=== PATIENT | female | born 1945 | race Caucasian/White ===

== ENCOUNTER 2017-09-10 10:27 | Emergency (ER) | payer MEDICARE, BC ==
[2017-09-10] MEDS ORDERED: Acetaminophen/HYDROcodone 325-5 MG Tab PO ONE (11:41)
--- NOTE | 2017-09-10 11:47 | EDM.PDOC ---
ED HPI GENERAL MEDICAL PROBLEM - General Chief Complaint: Flank Pain Stated Complaint: LOW BACK PAIN AND LOTS OF COUGHING Time Seen by Provider: 09/10/17 11:35 Source of Information: Reports: Patient, Old Records, RN History Limitations: Reports: No Limitations - History of Present Illness INITIAL COMMENTS - FREE TEXT/NARRATIVE: 71 yo female developed a cough last that has progressed. No fever. Cough is occasionally productive. Has not been to her doctor for her sx's. Has no hx of asthma and quit smoking in '. Since the onset of her cough she has also developed a bulge in her umbilical area when she coughs and L flank pain with movement or coughing that she thought was her kidney. Has no dysuria. No rash. Onset: Gradual Onset Date: 09/04/17 Duration: Day(s):, Getting Worse Location: Reports: Chest (cough), Abdomen (hernia), Back (L flank) Quality: Reports: Sharp (L flank with movement.), Stabbing Severity: Moderate Improves with: Reports: Rest Worsens with: Reports: Movement Context: Reports: Other (frequent cough for several days) Associated Symptoms: Reports: Chest Pain (L flank), Cough (occasionally productive). Denies: Fever/Chills, Shortness of Breath Treatments SENIOR TELLER: Reports: Other (see below) (none) LEFT FLANK AND RIGHT ABDOMEN Pain Score (Numeric/FACES): 10 - Related Data Allergies Allergy/AdvReac Type Severity Reaction Status Date / Time simvastatin Allergy Hives Verified 09/10/17 10:54 eggs Allergy Diarrhea Uncoded 09/10/17 10:54 metal Allergy Blisters Uncoded 09/10/17 10:54 Home Meds: Home Meds Acetaminophen/HYDROcodone [[place] 325-5 MG] 1 - 2 tab PO Q4H PRN #30 tab [Rx] Alendronate [Fosamax] 70 mg PO 09/10/17 [History] Allopurinol [Zyloprim] 100 mg PO DAILY 09/10/17 [History] Anastrozole [Arimidex] 1 mg PO Q6HR 09/10/17 [History] Azithromycin [Zithromax] 250 mg PO DAILY #4 tab 09/10/17 [Rx] Cyanocobalamin (Vitamin B12) [Vitamin B12] 1,000 mcg PO DAILY 09/10/17 [History] DULoxetine [Cymbalta] 60 mg PO BID 09/10/17 [History] DULoxetine [Cymbalta] 60 mg PO DAILY 09/10/17 [History] Doxepin [SINEquan] 25 mg PO BEDTIME 09/10/17 [History] Gabapentin [Neurontin] 300 mg PO DAILY 09/10/17 [History] Ketoconazole [Ketoconazole 2%] 1 applic TOP BID 09/10/17 [History] Metoprolol Succinate 25 mg PO DAILY 09/10/17 [History] Pramipexole [Mirapex] 0.5 mg PO BEDTIME 09/10/17 [History] Spironolactone 50 mg PO BID 09/10/17 [History] Torsemide 20 mg PO DAILY 09/10/17 [History] tiZANidine [Zanaflex] 4 mg PO Q8H 09/10/17 [History] traMADol [Ultram] 50 mg PO Q6H PRN 09/10/17 [History] Past Medical History HEENT History: Reports: Cataract Cardiovascular History: Reports: Heart Failure, High Cholesterol, Hypertension, Pulmonary Hypertension Respiratory History: Reports: Sleep Apnea, Other (See Below) Other Respiratory History: 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 c- pap. 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 bilateral hip pain needs replacement. DJD knee,s Neurological History: Reports: Neuropathy, Peripheral, Other (See Below) Other Neuro History: Restless leg Psychiatric History: Reports: Depression Endocrine/Metabolic History: Reports: Diabetes, Type II, Obesity/BMI 30+ Hematologic History: Reports: B12 Deficiency Oncologic (Cancer) History: Reports: Breast - Past Surgical History HEENT Surgical History: Reports: Cataract Surgery, Tonsillectomy GI Surgical History: Reports: Appendectomy Female Surgical History: Reports: Breast Biopsy Neurological Surgical History: Reports: Spinal Fusion Oncologic Surgical History: Reports: Biopsy of Breast, Lumpectomy Social & Family History - Tobacco Use Smoking Status *Q: Former Smoker Used Tobacco, but Quit: Yes Month/Year Tobacco Last Used: 2003 - Caffeine Use Caffeine Use: Reports: Coffee - Recreational Drug Use Recreational Drug Use: No ED ROS GENERAL - Review of Systems Review Of Systems: See Below Constitutional: Denies: Fever, Diaphoresis HEENT: Reports: No Symptoms Respiratory: Reports: Pleuritic Chest Pain, Cough, Sputum (occasionally). Denies: Shortness of Breath Cardiovascular: Reports: No Symptoms Endocrine: Reports: No Symptoms GI/Abdominal: Reports: No Symptoms : Reports: Flank Pain (L flank). Denies: Dysuria, Frequency Musculoskeletal: Reports: No Symptoms Skin: Reports: No Symptoms Neurological: Reports: No Symptoms Psychiatric: Reports: No Symptoms ED EXAM, GENERAL - Physical Exam Exam: See Below Exam Limited By: No Limitations General Appearance: Alert, WD/WN, Mild Distress Eye Exam: Bilateral Eye: Normal Inspection Ears: Normal External Exam, Normal Canal, Hearing Grossly Normal, Normal TMs Ear Exam: Bilateral Ear: Auricle Normal, Canal Normal, TM normal Nose: Normal Inspection, Normal Mucosa, No Blood Throat/Mouth: Normal Inspection, Normal Lips, Normal Oropharynx, Normal Voice, No Airway Compromise Head: Atraumatic, Normocephalic Neck: Normal Inspection, Supple, Non-Tender Respiratory/Chest: No Respiratory Distress, Lungs Clear, Normal Breath Sounds, No Accessory Muscle Use Cardiovascular: Regular Rate, Rhythm, No Edema GI/Abdominal: Normal Bowel Sounds, Soft, Non-Tender, No Distention Back Exam: Normal Inspection. No: CVA Tenderness (R), CVA Tenderness (L) Extremities: Normal Inspection, Normal Range of Motion, Non-Tender, No Pedal Edema Neurological: Alert, Oriented, CN II-XII Intact, Normal Cognition, No Motor/ Sensory Deficits Psychiatric: Normal Affect, Normal Mood Skin Exam: Warm, Dry, Intact, Normal Color, No Rash Lymphatic: No Adenopathy Course - Vital Signs Last Recorded V/S: Last Vital Signs Temp 37.1 C 09/10/17 11:19 Pulse 106 H 09/10/17 11:26 Resp 24 H 09/10/17 11:26 BP 138/85 09/10/17 11:26 Pulse Ox 88 L 09/10/17 11:26 - Orders/Labs/Meds Orders: Active Orders 24 hr Category Date Time Status CULTURE BLOOD [BC] Stat Lab 09/10/17 11:58 Received CULTURE URINE [RM] Stat Lab 09/10/17 13:01 Received URINALYSIS W/O MICROSCOPIC [UA W/O MICROSCOPIC] [URIN] Lab 09/10/17 12:50 Ordered Stat Labs: Laboratory Tests 09/10/17 09/10/17 09/10/17 Range/Units 11:52 11:55 11:55 WBC 8.1 (4.5-11.0) K/uL RBC 5.00 (3.30-5.50) M/uL Hgb 14.3 (12.0-15.0) g/dL Hct 43.7 (36.0-48.0) % MCV 87 (80-98) fL MCH 29 (27-31) pg MCHC 33 (32-36) % Plt Count 273 (150-400) K/uL Sodium 135 L (140-148) mmol/L Potassium 4.3 (3.6-5.2) mmol/L Chloride 99 L (100-108) mmol/L Carbon Dioxide 28 (21-32) mmol/L Anion Gap 12.3 (5.0-14.0) mmol/L BUN 19 H (7-18) mg/dL Creatinine 1.2 H (0.6-1.0) mg/dL Est Cr Clr Drug Dosing 34.99 mL/min Estimated GFR (MDRD) 45 L (>60) Glucose 108 H (74-106) mg/dL Lactic Acid 1.0 (0.4-2.0) mmol/L Calcium 8.9 (8.5-10.1) mg/dL C-Reactive Protein 12.28 H (0.0-0.3) mg/dL Urine Color Urine Appearance Urine pH (4.5-8.0) Ur Specific [place] (1.008-1.030) Urine Protein (NEGATIVE) mg/dL Urine Glucose (UA) (NEGATIVE) mg/dL Urine Ketones (NEGATIVE) mg/dL Urine Occult Blood (NEGATIVE) Urine Nitrite (NEGATIVE) Urine Bilirubin (NEGATIVE) Urine Urobilinogen (NORMAL) mg/dL Ur Leukocyte Esterase (NEGATIVE) 09/10/17 Range/Units 12:50 WBC (4.5-11.0) K/uL RBC (3.30-5.50) M/uL Hgb (12.0-15.0) g/dL Hct (36.0-48.0) % MCV (80-98) fL MCH (27-31) pg MCHC (32-36) % Plt Count (150-400) K/uL Sodium (140-148) mmol/L Potassium (3.6-5.2) mmol/L Chloride (100-108) mmol/L Carbon Dioxide (21-32) mmol/L Anion Gap (5.0-14.0) mmol/L BUN (7-18) mg/dL Creatinine (0.6-1.0) mg/dL Est Cr Clr Drug Dosing mL/min Estimated GFR (MDRD) (>60) Glucose (74-106) mg/dL Lactic Acid (0.4-2.0) mmol/L Calcium (8.5-10.1) mg/dL C-Reactive Protein (0.0-0.3) mg/dL Urine Color Yellow Urine Appearance Slightly cloudy Urine pH 5.0 (4.5-8.0) Ur Specific [place] 1.020 (1.008-1.030) Urine Protein Trace (NEGATIVE) mg/dL Urine Glucose (UA) Normal (NEGATIVE) mg/dL Urine Ketones Negative (NEGATIVE) mg/dL Urine Occult Blood Moderate (NEGATIVE) Urine Nitrite Negative (NEGATIVE) Urine Bilirubin Small (NEGATIVE) Urine Urobilinogen 1 (NORMAL) mg/dL Ur Leukocyte Esterase Moderate (NEGATIVE) Meds: Medications Discontinued Medications Generic Name Dose Route Start Last Admin Trade Name Aubrie PRN Reason Stop Dose Admin Hydrocodone Bitart/Acetaminophen 2 tab 09/10/17 11:41 09/10/17 11:53 [place] 325-5 Mg PO 09/10/17 11:42 2 tab ONETIME ONE Administration Azithromycin 500 mg 09/10/17 12:59 09/10/17 13:28 Zithromax PO 09/10/17 13:00 500 mg ONETIME ONE Administration Ceftriaxone Sodium 1 gm 09/10/17 12:59 Rocephin IM 09/10/17 13:00 ONETIME ONE Lidocaine HCl 5 ml 09/10/17 13:18 Xylocaine-Mpf 1% INJECT 09/10/17 13:19 ONETIME ONE - Radiology Interpretation Free Text/Narrative:: CXR-bilateral patchy infiltrates Departure - Departure Time of Disposition: 13:20 Disposition: Home, Self-Care 01 Condition: Fair Clinical Impression: Viral pneumonia - Discharge Information Prescriptions: Acetaminophen/HYDROcodone [[place] 325-5 MG] 1 - 2 tab PO Q4H PRN #30 tab PRN Reason: Pain Azithromycin [Zithromax] 250 mg PO DAILY #4 tab Referrals: PCP,None [Primary Care Provider] - Forms: ED Department Discharge Additional Instructions: Drink ample fluids. Take azithromycin daily as directed. Take [place] or acetaminophen as needed for pain relief. Recheck with your provider anirudh. Return here if worse. - My Orders Last 24 Hours: My Active Orders 09/10/17 11:58 CULTURE BLOOD [BC] Stat 09/10/17 12:50 URINALYSIS W/O MICROSCOPIC [UA W/O MICROSCOPIC] [URIN] Stat 09/10/17 13:01 CULTURE URINE [RM] Stat - Assessment/Plan Last 24 Hours: My Active Orders 09/10/17 11:58 CULTURE BLOOD [BC] Stat 09/10/17 12:50 URINALYSIS W/O MICROSCOPIC [UA W/O MICROSCOPIC] [URIN] Stat 09/10/17 13:01 CULTURE URINE [RM] Stat
--- NOTE | 2017-09-10 12:16 | CR ---
CHEST: 2 view CLINICAL HISTORY:Cough COMPARISON:None FINDINGS: Heart size and pulmonary vascularity are normal. There are atherosclerotic changes in the aorta. There is patchy interstitial prominence diffusely and bilaterally. Patient has had the multipl e kyphoplasty. There are multiple compression deformities in the thoracolumbar spine. IMPRESSION: Diffuse patchy interstitial prominence. This may be chronic, due to fibrosis. Superimpos ed acute interstitial process is not excluded .
[2017-09-10] MEDS ORDERED: cefTRIAXone 1 GM Vial IM ONE (12:59)
[2017-09-10] MEDS ORDERED: Azithromycin 250 MG Tab PO ONE (12:59)
[2017-09-10] MEDS ORDERED: Azithromycin 250 MG Tab ONE (13:30)
== END 2017-09-10 13:45 | disposition home or self-care (01) ==
LOC: JP.ED 10:27
DX: J12.9 Viral pneumonia, unspecified (principal); I50.9 Heart failure, unspecified; I11.0 Hypertensive heart disease with heart failure; E11.40 Type 2 diabetes mellitus with diabetic neuropathy, unspecified; E11.22 Type 2 diabetes mellitus with diabetic chronic kidney disease; I13.0 Hypertensive heart and chronic kidney disease with heart failure and stage 1 through stage 4 chronic kidney disease, or unspecified chronic kidney disease; N18.9 Chronic kidney disease, unspecified; Z88.8 Allergy status to other drugs, medicaments and biological substances; Z91.012 Allergy to eggs; Z91.048 Other nonmedicinal substance allergy status; Z79.899 Other long term (current) drug therapy; Z87.891 Personal history of nicotine dependence
CPT/HCPCS: 36415; 71046; 80048; 81003; 83605; 85027; 86140; 87040; 87086; 87088; 87186; 96372; 99284; A9270; J0696

== ENCOUNTER 2017-09-16 15:23 | Emergency (ER) | payer MEDICARE, BC ==
[2017-09-16] MEDS ORDERED: Albuterol/Ipratropium 3.0-0.5 MG/3 ML Neb Soln NEB ONE (16:26)
--- NOTE | 2017-09-16 16:37 | EDM.PDOC ---
ED HPI GENERAL MEDICAL PROBLEM - General Chief Complaint: Respiratory Problem Stated Complaint: PNEUMONIA NOT GETTING BETTER Time Seen by Provider: 09/16/17 16:15 Source of Information: Reports: Patient, Old Records, Police, RN Notes Reviewed History Limitations: Reports: No Limitations - History of Present Illness INITIAL COMMENTS - FREE TEXT/NARRATIVE: 71-year-old female presents to the emergency department today with increasing shortness of breath, she was evaluated in emergency department 6 days prior felt to have diagnosed with pneumonia was treated with combination Rocephin and a azithromycin, followed up in the clinic today has completed a course of antibiotics however was still feeling significantly short of breath. I did consult with her provider today Ms. Car is concerned she may need further workup. She has known history of sarcoidosis does follow with pulmonary states she has been stable, denies any overt fevers at home but does complain of night sweats producing greenish sputum mainly in the morning and shortness of breath at rest and with exertion Bilateral Leg Pain Score (Numeric/FACES): 5 - Related Data Allergies Allergy/AdvReac Type Severity Reaction Status Date / Time simvastatin Allergy Hives Verified 09/16/17 15:54 eggs Allergy Diarrhea Uncoded 09/10/17 10:54 metal Allergy Blisters Uncoded 09/10/17 10:54 Home Meds: Home Meds Acetaminophen/HYDROcodone [[place] 325-5 MG] 1 - 2 tab PO Q4H PRN #30 tab [Rx] Alendronate [Fosamax] 70 mg PO DAILY 09/10/17 [History] Allopurinol [Zyloprim] 100 mg PO DAILY 09/10/17 [History] Anastrozole [Arimidex] 1 mg PO Q6HR 09/10/17 [History] Cyanocobalamin (Vitamin B12) [Vitamin B12] 1,000 mcg PO DAILY 09/10/17 [History] DULoxetine [Cymbalta] 60 mg PO DAILY 09/10/17 [History] Doxepin [SINEquan] 25 mg PO BEDTIME 09/10/17 [History] Gabapentin [Neurontin] 300 mg PO DAILY 09/10/17 [History] Metoprolol Succinate 25 mg PO DAILY 09/10/17 [History] Pramipexole [Mirapex] 0.5 mg PO BEDTIME 09/10/17 [History] Spironolactone 50 mg PO BID 09/10/17 [History] Torsemide 60 mg PO DAILY 09/10/17 [History] tiZANidine [Zanaflex] 4 mg PO Q8H 09/10/17 [History] traMADol [Ultram] 50 mg PO Q6H PRN 09/10/17 [History] Benzonatate [Tessalon Perle] 100 mg PO TID PRN #30 capsule 09/16/17 [Rx] metFORMIN [Glucophage] 500 mg PO DAILY 09/16/17 [History] predniSONE [Prednisone] 40 mg PO DAILY 5 Days #10 tablet 09/16/17 [Rx] Past Medical History HEENT History: Reports: Cataract Cardiovascular History: Reports: Heart Failure, High Cholesterol, Hypertension, Pulmonary Hypertension Respiratory History: Reports: Sleep Apnea, Other (See Below) Other Respiratory History: 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 c- pap. 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 bilateral hip pain needs replacement. DJD knee,s Neurological History: Reports: Neuropathy, Peripheral, Other (See Below) Other Neuro History: Restless leg Psychiatric History: Reports: Depression Endocrine/Metabolic History: Reports: Diabetes, Type II, Obesity/BMI 30+ Hematologic History: Reports: B12 Deficiency Oncologic (Cancer) History: Reports: Breast - Past Surgical History HEENT Surgical History: Reports: Cataract Surgery, Tonsillectomy GI Surgical History: Reports: Appendectomy Female Surgical History: Reports: Breast Biopsy Neurological Surgical History: Reports: Spinal Fusion Oncologic Surgical History: Reports: Biopsy of Breast, Lumpectomy Social & Family History - Tobacco Use Smoking Status *Q: Never Smoker - Caffeine Use Caffeine Use: Reports: Coffee - Recreational Drug Use Recreational Drug Use: No ED ROS GENERAL - Review of Systems Review Of Systems: See Below Constitutional: Reports: Night Sweats. Denies: Fever, Chills HEENT: Reports: No Symptoms, Vision Change Respiratory: Reports: Shortness of Breath, Wheezing, Cough, Sputum Cardiovascular: Reports: Dyspnea on Exertion. Denies: Chest Pain GI/Abdominal: Reports: No Symptoms : Reports: No Symptoms Musculoskeletal: Reports: No Symptoms Skin: Reports: No Symptoms Neurological: Reports: No Symptoms ED EXAM, GENERAL - Physical Exam Exam: See Below Free Text/Narrative:: General: Female, not in any distress, coughing, alert and oriented x3 HEENT: head is atraumatic normocephalic, eyes pupils equal round reactive to light, sclera clear no conjunctivitis appreciated. Ears tympanic membranes clear and dang landmarks and light reflex are present bilaterally canals are clear. Nose no septal deviation, nares are clear, no blood present. Mouth mucosa is moist and pink no erythema or exudate noted in soft palate, tongue is midline uvula is midline, dentition is intact. Neck: Supple no thyromegaly no tracheal deviation. Nodes: Cervical nodes subclavicular nodes nontender no palpable lymphadenopathy noted. Lungs: Breath sounds are restricted reduced aeration I don't appreciate any wheezing CV: Regular rate and rhythm S1 and S2 appreciated no murmurs rubs or gallops noted. Abdomen: Soft, nontender, no palpable masses or organomegaly appreciated, no distention no guarding bowel sounds are present, . Neuro: Cranial nerves II through XII grossly intact Skin: Warm and dry, intact Extremities: No lower extremity edema appreciated, pedal pulse is +2. Course - Vital Signs Last Recorded V/S: Last Vital Signs Temp 98.2 F 09/16/17 15:53 Pulse 101 H 09/16/17 17:12 Resp 20 09/16/17 17:12 BP 112/40 L 09/16/17 17:12 Pulse Ox 90 L 09/16/17 17:12 - Orders/Labs/Meds Orders: Active Orders 24 hr Category Date Time Status EKG Documentation Completion [RC] ASDIRECTED Care 09/16/17 16:27 Active RT Aerosol Therapy [RC] ASDIRECTED Care 09/16/17 16:27 Active Chest wo Cont [CT] Stat Exams 09/16/17 16:28 Taken CULTURE RESPIRATORY + SMEAR [RM] Urgent Lab 09/16/17 16:29 Ordered EKG 12 Lead [EK] Routine Ther 09/16/17 16:26 Ordered Labs: Laboratory Tests 09/16/17 09/16/17 09/16/17 Range/Units 16:39 16:39 16:39 Troponin I < 0.017 (0.000-0.056) ng/mL C-Reactive Protein 2.00 H (0.0-0.3) mg/dL NT-Pro-B Natriuret Pep 54 (5-125) pg/mL TSH, Ultra Sensitive (0.358-3.740) uIU/mL 09/16/17 Range/Units 17:43 Troponin I (0.000-0.056) ng/mL C-Reactive Protein (0.0-0.3) mg/dL NT-Pro-B Natriuret Pep (5-125) pg/mL TSH, Ultra Sensitive 0.651 (0.358-3.740) uIU/mL Meds: Medications Discontinued Medications Generic Name Dose Route Start Last Admin Trade Name Freq PRN Reason Stop Dose Admin Albuterol/Ipratropium 3 ml 09/16/17 16:26 09/16/17 16:39 Duoneb 3.0-0.5 Mg/3 Ml NEB 09/16/17 16:27 3 ml ONETIME ONE Administration Departure - Departure Time of Disposition: 18:12 Disposition: Home, Self-Care 01 Condition: Fair Clinical Impression: Dyspnea Qualifiers: Dyspnea type: other forms of dyspnea Qualified Code(s): R06.09 - Other forms of dyspnea - Discharge Information Referrals: Dre Coburn MD [Primary Care Provider] - Forms: ED Department Discharge Additional Instructions: Take full course of steroids, use Tessalon Perles as needed help suppress cough , use albuterol inhaler as needed for shortness of breath symptoms, please 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 - My Orders Last 24 Hours: My Active Orders 09/16/17 16:26 EKG 12 Lead [EK] Routine 09/16/17 16:27 EKG Documentation Completion [RC] ASDIRECTED RT Aerosol Therapy [RC] ASDIRECTED 09/16/17 16:28 Chest wo Cont [CT] Stat 09/16/17 16:29 CULTURE RESPIRATORY + SMEAR [RM] Urgent - Assessment/Plan Last 24 Hours: My Active Orders 09/16/17 16:26 EKG 12 Lead [EK] Routine 09/16/17 16:27 EKG Documentation Completion [RC] ASDIRECTED RT Aerosol Therapy [RC] ASDIRECTED 09/16/17 16:28 Chest wo Cont [CT] Stat 09/16/17 16:29 CULTURE RESPIRATORY + SMEAR [RM] Urgent Plan: Assessment Acuity = acute Site and laterality = dyspnea Etiology = unclear etiology suspicious for underlying autoimmune versus emphysema Manifestations = none. Location of injury = Home Lab values = BNP 55, troponin negative, CRP at 2 CT scan of the chest reveals no acute process otherwise airway show mild to moderate central lobar pulmonary emphysema with mild subpleural interstitial fibrosis Plan I did review lab work CT scan results with her regarding her to trial of steroid prednisone 40 mg once a day for 5 days she's getting continue with albuterol inhaler which did provide some comfort for her and Tessalon Perles for cough 200 mg by mouth 3 times a day when necessary and she will follow-up with her lithopone charger next week This note was dictated using [employer] voice recognition software please call with any questions on syntax or grammar.
== END 2017-09-16 18:23 | disposition home or self-care (01) ==
LOC: JP.ED 15:23
DX: R06.09 Other forms of dyspnea (principal); I11.0 Hypertensive heart disease with heart failure; I50.9 Heart failure, unspecified; E78.00 Pure hypercholesterolemia, unspecified; E11.42 Type 2 diabetes mellitus with diabetic polyneuropathy; Z91.012 Allergy to eggs; Z88.8 Allergy status to other drugs, medicaments and biological substances; Z91.048 Other nonmedicinal substance allergy status; Z79.899 Other long term (current) drug therapy; Z79.84 Long term (current) use of oral hypoglycemic drugs
CPT/HCPCS: 36415; 71250; 83880; 84443; 84484; 86140; 93005; 94640; 99285; J7620

== ENCOUNTER 2017-09-19 17:49 | Emergency (ER) | payer MEDICARE, BC ==
[2017-09-19] MEDS ORDERED: Albuterol/Ipratropium 3.0-0.5 MG/3 ML Neb Soln NEB ONE (18:37)
[2017-09-19] MEDS ORDERED: Sodium Chloride 0.9% 10 ML Syringe FLUSH PRN (18:37)
--- NOTE | 2017-09-19 18:46 | EDM.PDOC ---
ED HPI GENERAL MEDICAL PROBLEM - General Chief Complaint: General Stated Complaint: SHORTNESS OF BREATH Time Seen by Provider: 09/19/17 18:30 Source of Information: Reports: Patient, Family History Limitations: Reports: No Limitations - History of Present Illness INITIAL COMMENTS - FREE TEXT/NARRATIVE: Idalia is a 71 year old female, hx of sarcoidosis, recent pneumonia and diabetes /HTN who presents to the ED today with ongoing dyspnea/sob. Patient was told by her meat team lead to come in tonight for possible PE and/or DVT as patient also has pain behind her left knee for the last day. Patient finished a course of Zithromax for her pneumonia 2 weeks ago, she was also started on prednisone with her left ED visit a week ago where CT scan was done and was negative for any acute findings. Patient does have a nebulizer machine at home which she really has not been using and she has been taking medication for her cough ( Tessalon Perles) which helped her symptoms. Patient denies any known recent fever, she reports that she sweats frequently and is difficult to tell she is running warm or not. Patient reports she is eating and drinking well. Patient reports that her meat team lead was concerned that she is early on prednisone for sarcoidosis which should help if this was the cause of her dyspnea. Patient denies any history of PE or DVT in the past, she is not currently on any blood thinners. Patient also has a history of chronic kidney disease and was told not to have any IV contrast. Onset: Gradual Duration: Week(s): (2) - Related Data Allergies Allergy/AdvReac Type Severity Reaction Status Date / Time simvastatin Allergy Hives Verified 09/19/17 18:10 eggs Allergy Diarrhea Uncoded 09/19/17 18:10 metal Allergy Blisters Uncoded 09/19/17 18:10 Home Meds: Home Meds Alendronate [Fosamax] 70 mg PO WEEKLY 09/10/17 [History] Allopurinol [Zyloprim] 100 mg PO DAILY 09/10/17 [History] Anastrozole [Arimidex] 1 mg PO Q6HR 09/10/17 [History] Cyanocobalamin (Vitamin B12) [Vitamin B12] 1,000 mcg PO DAILY 09/10/17 [History] DULoxetine [Cymbalta] 60 mg PO DAILY 09/10/17 [History] Doxepin [SINEquan] 25 mg PO BEDTIME 09/10/17 [History] Gabapentin [Neurontin] 300 mg PO DAILY 09/10/17 [History] Metoprolol Succinate 25 mg PO DAILY 09/10/17 [History] Pramipexole [Mirapex] 0.5 mg PO BEDTIME 09/10/17 [History] Spironolactone 50 mg PO BID 09/10/17 [History] Torsemide 60 mg PO DAILY 09/10/17 [History] tiZANidine [Zanaflex] 4 mg PO Q8H 09/10/17 [History] traMADol [Ultram] 50 mg PO Q6H PRN 09/10/17 [History] Benzonatate [Tessalon Perle] 100 mg PO TID PRN #30 capsule 09/16/17 [Rx] metFORMIN [Glucophage] 500 mg PO DAILY 09/16/17 [History] predniSONE [Prednisone] 40 mg PO DAILY 5 Days #10 tablet 09/16/17 [Rx] Past Medical History HEENT History: Reports: Cataract Cardiovascular History: Reports: Heart Failure, High Cholesterol, Hypertension, Pulmonary Hypertension Respiratory History: Reports: Sleep Apnea, Other (See Below) Other Respiratory History: 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 c- pap. oxygen at night Gastrointestinal History: Reports: GERD, Other (See Below) Other Gastrointestinal History: Isabel,s esophagus Genitourinary History: Reports: Chronic Renal Insuffiency SCIENCE SPECIALIST History: Reports: Musculoskeletal History: Reports: Fibromyalgia, Gout, Osteoarthritis, Other ( See Below) Other Musculoskeletal History: Lumbar compression fractures. bilateral hip pain needs replacement. DJD knee,s Neurological History: Reports: Neuropathy, Peripheral, Other (See Below) Other Neuro History: Restless leg Psychiatric History: Reports: Depression Endocrine/Metabolic History: Reports: Diabetes, Type II, Obesity/BMI 30+ Hematologic History: Reports: B12 Deficiency Oncologic (Cancer) History: Reports: Breast - Past Surgical History HEENT Surgical History: Reports: Cataract Surgery, Tonsillectomy GI Surgical History: Reports: Appendectomy Female Surgical History: Reports: Breast Biopsy, Breast Reconstruction Other Female Surgeries/Procedures: lumpectomy Neurological Surgical History: Reports: Spinal Fusion Oncologic Surgical History: Reports: Biopsy of Breast, Lumpectomy Social & Family History - Tobacco Use Smoking Status *Q: Former Smoker Years of Tobacco use: 30 Packs/Tins Daily: 1 Used Tobacco, but Quit: Yes Month/Year Tobacco Last Used: 08/2001 Second Hand Smoke Exposure: Yes - Caffeine Use Caffeine Use: Reports: Coffee, Soda, Tea - Recreational Drug Use Recreational Drug Use: No ED ROS GENERAL - Review of Systems Review Of Systems: ROS reveals no pertinent complaints other than HPI. ED EXAM, GENERAL - Physical Exam Exam: See Below Exam Limited By: No Limitations General Appearance: Alert, WD/WN, No Apparent Distress, Other (Diaphoretic) Eye Exam: Bilateral Eye: EOMI Throat/Mouth: Normal Oropharynx Head: Atraumatic Neck: Normal Inspection Respiratory/Chest: No Respiratory Distress, Lungs Clear, Normal Breath Sounds, No Accessory Muscle Use, Chest Non-Tender Cardiovascular: Normal Peripheral Pulses, Regular Rate, Rhythm, No Murmur Peripheral Pulses: 2+: Dorsalis Pedis (L), Dorsalis Pedis (R) GI/Abdominal: Normal Bowel Sounds, Soft, Non-Tender Extremities: Normal Inspection Neurological: Alert, Oriented, CN II-XII Intact Psychiatric: Normal Affect, Normal Mood Skin Exam: Warm, Intact, Diaphoretic Lymphatic: No Adenopathy Course - Vital Signs Last Recorded V/S: Last Vital Signs Temp 36.3 C 09/19/17 18:31 Pulse 85 09/19/17 18:31 Resp 15 09/19/17 18:31 BP 126/80 09/19/17 18:31 Pulse Ox 94 L 09/19/17 18:31 Idalia is a 71-year-old female, history of sarcoidosis, recent pneumonia, diabetes, chronic kidney disease who presents to the emergency department today as directed by her meat team lead for rule out PE/DVT. Please refer to history of present illness and focused exam. Patient on arrival here is hemolytically stable, she is afebrile, she is not hypoxic, she is not in any acute respiratory distress. Patient is diaphoretic, she denies any chest pain. Patient has no real lateral leg swelling, bilateral pedal pulses are intact, patient's has a negative Homans sign. D-dimer was obtained and is elevated at 1660. This may likely be due to a combination of factors, however, given patient's ongoing dyspnea with no improvement despite steroids and antibiotics, she would benefit from a CT PE, unfortunately her GFR today is 37 and we cannot do this here given her policy according to community development technician, GFR has to be at least 40. We do not have the capability to do a VQ scan. I discussed this with patient to does request to be transferred to [facility]. I discussed patient's case with the ER physician at [facility] who has accepted patient for transfer, I did mention that patient would also need an ultrasound of her left lower leg while she is there as well. Patient was given a liter of normal saline. Her white count today is reassuringly normal, CRP is mildly elevated. She is stable for discharge and agreeable to plan of care. Patient was discharged via BLS. Patient has a another daughter and [place] who can pick her up issues discharged from their facility which they were made aware. Nurse report was given to Paulina at [facility]. - Orders/Labs/Meds Orders: Active Orders 24 hr Category Date Time Status Peripheral IV Care [RC] . DIRECTED Care 09/19/17 18:37 Active RT Aerosol Therapy [RC] ASDIRECTED Care 09/19/17 18:37 Active Sodium Chloride 0.9% [Normal Saline] 1,000 ml Med 09/19/17 20:15 Active IV ASDIRECTED Sodium Chloride 0.9% [Saline Flush] Med 09/19/17 18:37 Active 10 ml FLUSH ASDIRECTED PRN Peripheral IV Insertion Adult [OM.PC] Routine Oth 09/19/17 18:37 Ordered Medication Orders Sodium Chloride (Normal Saline) 1,000 mls @ 999 mls/hr IV ASDIRECTED UMM Sodium Chloride (Saline Flush) 10 ml FLUSH ASDIRECTED PRN PRN Reason: Keep Vein Open Last Admin: 09/19/17 20:19 Dose: 10 ml Labs: Laboratory Tests 09/19/17 09/19/17 09/19/17 Range/Units 18:36 18:37 18:37 WBC 8.7 (4.5-11.0) K/uL RBC 5.09 (3.30-5.50) M/uL Hgb 14.7 (12.0-15.0) g/dL Hct 44.7 (36.0-48.0) % MCV 88 (80-98) fL MCH 29 (27-31) pg MCHC 33 (32-36) % Plt Count 284 (150-400) K/uL Neut % (Auto) 89 H (36-66) % Lymph % (Auto) 7 L (24-44) % Snyder % (Auto) 3 (2-6) % Eos % (Auto) 0 L (2-4) % Baso % (Auto) 0 (0-1) % D-Dimer, Quantitative 1660 H (0.0-400.0) ng/mL Sodium 132 L (140-148) mmol/L Potassium 5.1 (3.6-5.2) mmol/L Chloride 94 L (100-108) mmol/L Carbon Dioxide 31 (21-32) mmol/L Anion Gap 12.1 (5.0-14.0) mmol/L BUN 31 H D (7-18) mg/dL Creatinine 1.4 H (0.6-1.0) mg/dL Est Cr Clr Drug Dosing 29.99 mL/min Estimated GFR (MDRD) 37 L (>60) Glucose 265 H (74-106) mg/dL Calcium 9.4 (8.5-10.1) mg/dL Total Bilirubin 0.4 (0.2-1.0) mg/dL AST 14 L (15-37) U/L ALT 26 (12-78) U/L Alkaline Phosphatase 94 (46-116) U/L C-Reactive Protein (0.0-0.3) mg/dL NT-Pro-B Natriuret Pep 70 (5-125) pg/mL Total Protein 8.0 (6.4-8.2) g/dL Albumin 3.7 (3.4-5.0) g/dL Globulin 4.3 H (2.3-3.5) g/dL Albumin/Globulin Ratio 0.9 L (1.2-2.2) 09/19/17 Range/Units 18:40 WBC (4.5-11.0) K/uL RBC (3.30-5.50) M/uL Hgb (12.0-15.0) g/dL Hct (36.0-48.0) % MCV (80-98) fL MCH (27-31) pg MCHC (32-36) % Plt Count (150-400) K/uL Neut % (Auto) (36-66) % Lymph % (Auto) (24-44) % Snyder % (Auto) (2-6) % Eos % (Auto) (2-4) % Baso % (Auto) (0-1) % D-Dimer, Quantitative (0.0-400.0) ng/mL Sodium (140-148) mmol/L Potassium (3.6-5.2) mmol/L Chloride (100-108) mmol/L Carbon Dioxide (21-32) mmol/L Anion Gap (5.0-14.0) mmol/L BUN (7-18) mg/dL Creatinine (0.6-1.0) mg/dL Est Cr Clr Drug Dosing mL/min Estimated GFR (MDRD) (>60) Glucose (74-106) mg/dL Calcium (8.5-10.1) mg/dL Total Bilirubin (0.2-1.0) mg/dL AST (15-37) U/L ALT (12-78) U/L Alkaline Phosphatase (46-116) U/L C-Reactive Protein 0.62 H (0.0-0.3) mg/dL NT-Pro-B Natriuret Pep (5-125) pg/mL Total Protein (6.4-8.2) g/dL Albumin (3.4-5.0) g/dL Globulin (2.3-3.5) g/dL Albumin/Globulin Ratio (1.2-2.2) Meds: Medications Generic Name Dose Route Start Last Admin Trade Name Freq PRN Reason Stop Dose Admin Sodium Chloride 1,000 mls @ 999 mls/hr 09/19/17 20:15 Normal Saline IV ASDIRECTED UMM Sodium Chloride 10 ml 09/19/17 18:37 09/19/17 20:19 Saline Flush FLUSH 10 ml ASDIRECTED PRN Administration Keep Vein Open Discontinued Medications Generic Name Dose Route Start Last Admin Trade Name Freq PRN Reason Stop Dose Admin Albuterol/Ipratropium 3 ml 09/19/17 18:37 09/19/17 18:41 Duoneb 3.0-0.5 Mg/3 Ml NEB 09/19/17 18:38 3 ml ONETIME ONE Administration Departure - Departure Time of Disposition: 21:00 Disposition: DC/Tfer to Acute Hospital 02 Condition: Good Clinical Impression: Dyspnea Qualifiers: Dyspnea type: other forms of dyspnea Qualified Code(s): R06.09 - Other forms of dyspnea - Discharge Information Referrals: Dre Coburn MD [Primary Care Provider] - Forms: ED Department Discharge - My Orders Last 24 Hours: My Active Orders 09/19/17 18:37 Peripheral IV Care [RC] . DIRECTED RT Aerosol Therapy [RC] ASDIRECTED Sodium Chloride 0.9% [Saline Flush] 10 ml FLUSH ASDIRECTED PRN Peripheral IV Insertion Adult [OM.PC] Routine 09/19/17 20:15 Sodium Chloride 0.9% [Normal Saline] 1,000 ml IV ASDIRECTED - Assessment/Plan Last 24 Hours: My Active Orders 09/19/17 18:37 Peripheral IV Care [RC] . DIRECTED RT Aerosol Therapy [RC] ASDIRECTED Sodium Chloride 0.9% [Saline Flush] 10 ml FLUSH ASDIRECTED PRN Peripheral IV Insertion Adult [OM.PC] Routine 09/19/17 20:15 Sodium Chloride 0.9% [Normal Saline] 1,000 ml IV ASDIRECTED
[2017-09-19] MEDS ORDERED: Sodium Chloride 0.9% 1,000 ML IV SCH (20:15)
== END 2017-09-19 21:00 ==
LOC: JP.ED 17:49
DX: R06.09 Other forms of dyspnea (principal); I13.0 Hypertensive heart and chronic kidney disease with heart failure and stage 1 through stage 4 chronic kidney disease, or unspecified chronic kidney disease; I50.9 Heart failure, unspecified; N18.9 Chronic kidney disease, unspecified; E78.00 Pure hypercholesterolemia, unspecified; K21.9 Gastro-esophageal reflux disease without esophagitis; E11.42 Type 2 diabetes mellitus with diabetic polyneuropathy; Z91.012 Allergy to eggs; Z88.8 Allergy status to other drugs, medicaments and biological substances; Z91.048 Other nonmedicinal substance allergy status; Z79.899 Other long term (current) drug therapy; Z79.84 Long term (current) use of oral hypoglycemic drugs; Z87.891 Personal history of nicotine dependence
CPT/HCPCS: 36415; 80053; 83880; 85025; 85379; 86140; 96360; 99285; J7030; J7050; J7620

== ENCOUNTER 2018-04-04 07:55 | Day surgery (SDC) | payer MEDICARE, BC ==
[~2018-04-04 07:55] MED LIST: Albuterol/Ipratropium 3.0-0.5 MG/3 ML Neb Soln NEB ONE; Dextrose 5%-Lactated Ringers 1,000 ML IV SCH; Propofol 200 MG/20 ML SDV ONE; fentaNYL 100 MCG/2 ML SDV ONE
[2018-04-04] MEDS ORDERED: Albuterol/Ipratropium 3.0-0.5 MG/3 ML Neb Soln NEB ONE (08:15)
[2018-04-04] MEDS ORDERED: Dextrose 5%-Lactated Ringers 1,000 ML IV SCH (08:15)
--- NOTE | 2018-04-17 10:23 | OR ---
DATE OF PROCEDURE: 04/04/2018 PREOPERATIVE DIAGNOSIS: History of Isabel esophagus. POSTOPERATIVE DIAGNOSES: 1. History of Isabel esophagus with small hiatal hernia and moderate inflammation at esophagogastric junction. 2. Mild antral gastritis and duodenitis. OPERATIVE PROCEDURE: Esophagogastroduodenoscopy with: 1. Biopsies of antrum for CLOtest. 2. Biopsies of esophagogastric junction for histologic evaluation. ANESTHESIA: IV sedation. INDICATION FOR PROCEDURE: A 72-year-old female, who has history of Isabel esophagus and is to undergo a followup endoscopy, who is also planning on having a bariatric surgery in the upcoming near future and we would like to assess the degree of hiatal hernia and the amount of inflammation present. She has been intolerant of Protonix in the past and the [facility] advised the patient that she would be best treated by means of a gastric bypass both for treatment of her obesity-related comorbidities and the Isabel esophagus. Potential risks of the procedure today including bleeding and perforation were discussed, and the patient wishes to proceed. DETAILS OF PROCEDURE: The patient was taken to the operating room and placed in the left lateral decubitus position. IV sedation was administered, after which the upper GI endoscope was passed orally through the length of the esophagus, into the stomach with retroflexion view of the fundus, and thereafter through the pyloric channel and into the proximal duodenum. Findings included normal hypopharynx, larynx, upper esophageal sphincter, and esophageal body. At the EG junction, there was a small hiatal hernia. There was some upward extension of the gastrointestinal mucosal lining and moderate amount of inflammation with the distal esophageal mucosa being somewhat reddened and edematous. There is no stricturing, plaquing, or other signs of neoplastic change. Within the stomach, there was some mild patchy redness in the antrum, which continued in the duodenal bulb before the duodenum normalized, and at that point, biopsies were obtained from the antrum and sent for CLOtest for H. pylori. Multiple biopsies were then taken from the esophagogastric junction and sent for histologic evaluation. No bleeding from the biopsy sites was seen and the procedure concluded. The plan will be to start the patient on ranitidine 300 mg daily, and we will see the patient back next Friday for discussion of the gastric bypass. I think it would be nice to get some control of the esophagitis with ranitidine prior to the surgical undertaking. Jarrod Mcgrath MD /[id number]
== END 2018-04-04 11:45 | disposition home or self-care (01) ==
LOC: JP.SDS 07:55
PROVIDERS: ATTEND Surgery
DX: K22.70 Barrett's esophagus without dysplasia (principal); K21.0 Gastro-esophageal reflux disease with esophagitis; K44.9 Diaphragmatic hernia without obstruction or gangrene; I13.0 Hypertensive heart and chronic kidney disease with heart failure and stage 1 through stage 4 chronic kidney disease, or unspecified chronic kidney disease; I50.9 Heart failure, unspecified; E11.22 Type 2 diabetes mellitus with diabetic chronic kidney disease; N18.9 Chronic kidney disease, unspecified; E66.01 Morbid (severe) obesity due to excess calories; I27.20 Pulmonary hypertension, unspecified; G47.33 Obstructive sleep apnea (adult) (pediatric)
CPT/HCPCS: 43239; 87081; 88305; 93005; 93010; J2704; J3010; J7042; J7620-GY

== ENCOUNTER 2018-06-15 05:40 | Inpatient (IN) | payer MEDICARE, BC ==
[~2018-06-15 05:40] MED LIST changes: +Acetaminophen 500 MG Tab PO ONE; -Albuterol/Ipratropium 3.0-0.5 MG/3 ML Neb Soln NEB ONE; +Celecoxib 200 MG Cap PO ONE; -Dextrose 5%-Lactated Ringers 1,000 ML IV SCH; +Gabapentin 300 MG Cap PO ONE; -Propofol 200 MG/20 ML SDV ONE; +Scopolamine 1.5 MG Transdermal Patch TOP SCH; -fentaNYL 100 MCG/2 ML SDV ONE
[2018-06-15] MEDS ORDERED: Albuterol/Ipratropium 3.0-0.5 MG/3 ML Neb Soln NEB ONE (07:00)
[2018-06-15] MEDS ORDERED: Dextrose 5%-Lactated Ringers 1,000 ML IV SCH (07:00)
[2018-06-15] MEDS ORDERED: cefOXitin 2 GM in Sodium Chloride 0.9% 50 ML IV ONE (07:15)
[2018-06-15] MEDS ORDERED: fentaNYL 250 MCG/5 ML SDV ONE ×2 (07:21→08:35)
[2018-06-15] MEDS ORDERED: Ondansetron 4 MG/2 ML SDV ONE (07:22)
[2018-06-15] MEDS ORDERED: Neostigmine Methylsulfate 1 MG/ML 5 ML Syringe ONE (07:22)
[2018-06-15] MEDS ORDERED: Rocuronium 50 MG/5 ML Vial ONE (07:22)
[2018-06-15] MEDS ORDERED: Glycopyrrolate 0.2 MG/ML 5 ML MDV ONE (07:22)
[2018-06-15] MEDS ORDERED: Propofol 200 MG/20 ML SDV ONE (07:22)
[2018-06-15] MEDS ORDERED: Succinylcholine 200 MG/10 ML MDV ONE (07:22)
[2018-06-15] MEDS ORDERED: Sodium Chloride 0.9% 1,000 ML ONE (07:25)
[2018-06-15] MEDS ORDERED: Formoterol/Mometasone 100-5 MCG 8.8 GM Inhaler IH ONE (07:30)
[2018-06-15] MEDS ORDERED: Ketamine 500 MG/5 ML MDV IV SCH (07:45)
[2018-06-15] MEDS ORDERED: Ropivacaine 60 ML, Dexamethasone 8 MG, EPINEPHrine 0.4 MG, Sodium Chloride 0.9% 17.6 ML NERVRT SCH ×4 (07:45)
[2018-06-15] MEDS: cefOXitin 2 GM Vial ONE ×2 (08:43→09:28)
[2018-06-15] MEDS ORDERED: Naloxone 0.4 MG/ML SDV ONE (10:01)
[2018-06-15] MEDS ORDERED: ePHEDrine 50 MG/ML SDV ONE (10:17)
[2018-06-15] MEDS ORDERED: Sodium Chloride 0.9% 0 ML ONE (10:17)
[2018-06-15] MEDS ORDERED: hydrOXYzine HCl 100 MG/2 ML SDV IM ONE (10:28)
[2018-06-15] MEDS ORDERED: Insulin Lispro 100 Unit/ML 3 ML KwikPen SUBCUT ONE (10:43)
[2018-06-15] MEDS ORDERED: Labetalol 20 MG/4 ML Syringe IVPUSH PRN (12:12)
[2018-06-15] MEDS ORDERED: Ondansetron 4 MG/2 ML SDV IVPUSH PRN (12:12)
[2018-06-15] MEDS ORDERED: Metoclopramide 10 MG/2 ML SDV IVPUSH PRN (12:12)
[2018-06-15] MEDS ORDERED: Albuterol/Ipratropium 3.0-0.5 MG/3 ML Neb Soln INH PRN (12:12)
[2018-06-15] MEDS ORDERED: Insulin Lispro 100 Unit/ML 3 ML KwikPen SUBCUT PRN (12:12)
[2018-06-15] MEDS ORDERED: diphenhydrAMINE 50 MG/ML SDV IVPUSH PRN (12:12)
[2018-06-15] MEDS ORDERED: hydrOXYzine HCl 100 MG/2 ML SDV IM PRN (12:12)
[2018-06-15] MEDS ORDERED: HYDROmorphone 0.5 MG/0.5 ML Syringe IVPUSH PRN (12:12)
[2018-06-15] MEDS: Lactated Ringers 1,000 ML IV SCH ×2 (12:20→21:23)
[2018-06-15] MEDS: Dextrose 5%-Lactated Ringers 1,000 ML IV SCH (12:20)
[2018-06-15] MEDS: cefOXitin 2 GM in Sodium Chloride 0.9% 50 ML IV SCH ×2 (13:03→17:36)
[2018-06-15] MEDS ORDERED: Pantoprazole 40 MG Vial IVPUSH SCH (14:00)
[2018-06-15] MEDS: Gabapentin 250 MG/5 ML Solution ML 470 ML Bottle PO SCH ×2 (14:08→21:14)
[2018-06-15] MEDS: Albuterol/Ipratropium 3.0-0.5 MG/3 ML Neb Soln INH SCH ×2 (14:31→21:16)
[2018-06-15] MEDS: Acetaminophen Soln 650 MG/20.3 ML UD Cup PO SCH ×2 (15:34→21:14)
[2018-06-15] MEDS: Diltiazem IR 30 MG Tab PO SCH ×2 (15:34→21:16)
[2018-06-15] MEDS ORDERED: MVI, Adult with Vitamin K 10 ML, Thiamine 200 MG, Chromium/Copper/Mang/Selen/Zn 1 ML in... IV SCH ×4 (16:00)
[2018-06-15] MEDS ORDERED: metFORMIN 500 MG Tab PO SCH (17:00)
[2018-06-15] MEDS: Heparin Sodium 5,000 Units/ML Vial SUBCUT SCH (17:37)
[2018-06-15] MEDS: Metoprolol Tartrate 25 MG Tab PO SCH (21:15)
[2018-06-15] MEDS: Spironolactone 25 MG Tab PO SCH (21:15)
[2018-06-15] MEDS: Bumetanide 1 MG Tab PO SCH (21:15)
[2018-06-15] MEDS: Formoterol/Mometasone 100-5 MCG 8.8 GM Inhaler IH SCH (21:15)
[2018-06-16] MEDS: cefOXitin 2 GM in Sodium Chloride 0.9% 50 ML IV SCH (00:14)
[2018-06-16] MEDS ORDERED: Iohexol 647 MG/ML 50 ML SDV PO STA (01:23)
--- NOTE | 2018-06-16 02:21 | CRLCR ---
Indication: Dale-en-Y Technique: KUB 2 view obtained after administration of oral contrast Comparison: None Findings/Impression: : Postoperative changes of gastric bypass procedure. Oral contrast seen filling the gastric pouch and small bowel. No definite areas of extravasation identified. MIRANDA drain projects in the left upper quadrant. Nonspecific bowel gas pattern. Vertebroplasty material noted in several thoracic vertebral bodies. Dictated by Betsy Conner MD @ Jun 16 2018 2:17AM Signed by Dr. Betsy Conner @ Jun 16 2018 2:19AM
[2018-06-16] MEDS: Acetaminophen Soln 650 MG/20.3 ML UD Cup PO SCH ×4 (03:19→22:27)
[2018-06-16] MEDS: Dextrose 5%-Lactated Ringers 1,000 ML IV SCH (05:31)
[2018-06-16] MEDS: Diltiazem IR 30 MG Tab PO SCH ×4 (06:17→22:27)
[2018-06-16] MEDS: Heparin Sodium 5,000 Units/ML Vial SUBCUT SCH ×2 (06:17→17:10)
[2018-06-16] MEDS: Albuterol/Ipratropium 3.0-0.5 MG/3 ML Neb Soln INH SCH ×4 (07:10→20:36)
[2018-06-16] MEDS: Formoterol/Mometasone 100-5 MCG 8.8 GM Inhaler IH SCH ×2 (07:10→20:32)
[2018-06-16] MEDS ORDERED: Dextrose 5%-Lactated Ringers 1,000 ML IV SCH (07:15)
[2018-06-16] MEDS ORDERED: Ondansetron 4 MG Tab.DIS PO PRN (07:15)
[2018-06-16] MEDS ORDERED: Orphenadrine 100 MG Tab.ER PO PRN (07:16)
[2018-06-16] MEDS: Celecoxib 200 MG Cap PO SCH (08:13)
[2018-06-16] MEDS: Spironolactone 25 MG Tab PO SCH ×2 (08:14→20:31)
[2018-06-16] MEDS: Metoprolol Tartrate 25 MG Tab PO SCH ×2 (08:14→20:28)
[2018-06-16] MEDS: metFORMIN 500 MG Tab PO SCH (08:16)
[2018-06-16] MEDS: SCOPOLAMINE PATCH CHECK TOP SCH (08:21)
[2018-06-16] MEDS: Magnesium Sulfate/Water 2 GM in Premix Bag 1 BAG IV SCH ×3 (08:22→20:31)
[2018-06-16] MEDS: DULoxetine 30 MG Cap PO SCH (08:49)
[2018-06-16] MEDS: Allopurinol 100 MG Tab PO SCH (08:49)
[2018-06-16] MEDS: Anastrozole 1 MG Tab PO SCH (08:49)
[2018-06-16] MEDS: Gabapentin 250 MG/5 ML Solution ML 470 ML Bottle PO SCH ×3 (08:54→20:43)
--- NOTE | 2018-06-16 08:59 | PCM.PN ---
- General Info Date of Service: 06/16/18 Admission Dx/Problem (Free Text): Dale-en-Y Subjective Update: POD #1. Pt is doing very well. Has been up and walking. Tolerating liquid diet. Good urine output. Minimal pain. Functional Status: Reports: Pain Controlled, Tolerating Diet - Review of Systems General: Reports: No Symptoms HEENT: Reports: No Symptoms Pulmonary: Reports: No Symptoms Cardiovascular: Reports: No Symptoms Gastrointestinal: Reports: No Symptoms Genitourinary: Reports: No Symptoms Musculoskeletal: Reports: No Symptoms Skin: Reports: No Symptoms Neurological: Reports: No Symptoms Psychiatric: Reports: No Symptoms - Patient Data Vitals - Most Recent: Last Vital Signs Temp 35.7 C 06/16/18 07:00 Pulse 94 06/16/18 08:14 Resp 16 06/16/18 07:00 BP 127/60 06/16/18 08:14 Pulse Ox 98 06/16/18 07:45 Weight - Most Recent: 124.647 kg I&O - Last 24 Hours: Intake & Output 06/15/18 06/16/18 06/16/18 22:59 06:59 14:59 Intake Total 1011 2700 Output Total 640 2000 Balance 371 700 Lab Results Last 24 Hours: Laboratory Results - last 24 hr 06/16/18 06/16/18 06/16/18 Range/Units 04:45 04:45 04:45 WBC 7.7 (4.5-11.0) K/uL RBC 4.42 (3.30-5.50) M/uL Hgb 12.4 (12.0-15.0) g/dL Hct 39.8 (36.0-48.0) % MCV 90 (80-98) fL MCH 28 (27-31) pg MCHC 31 L (32-36) % Plt Count 247 (150-400) K/uL Neut % (Auto) 93 H (36-66) % Lymph % (Auto) 3 L (24-44) % [place] % (Auto) 4 (2-6) % Eos % (Auto) 0 L (2-4) % Baso % (Auto) 0 (0-1) % Sodium 138 L (140-148) mmol/L Potassium 4.8 (3.6-5.2) mmol/L Chloride 100 (100-108) mmol/L Carbon Dioxide 32 (21-32) mmol/L Anion Gap 10.8 (5.0-14.0) mmol/L BUN 25 H (7-18) mg/dL Creatinine 1.5 H (0.6-1.0) mg/dL Est Cr Clr Drug Dosing 27.60 mL/min Estimated GFR (MDRD) 34 L (>60) Glucose 173 H (74-106) mg/dL Calcium 9.5 (8.5-10.1) mg/dL Phosphorus 4.3 (2.5-4.9) mg/dL Magnesium 1.7 L (1.8-2.4) mg/dL Total Bilirubin 0.3 (0.2-1.0) mg/dL AST 39 H D (15-37) U/L ALT 50 D (12-78) U/L Alkaline Phosphatase 73 (46-116) U/L NT-Pro-B Natriuret Pep 465 H (5-125) pg/mL Total Protein 6.4 (6.4-8.2) g/dL Albumin 2.9 L (3.4-5.0) g/dL Globulin 3.5 (2.3-3.5) g/dL Albumin/Globulin Ratio 0.8 L (1.2-2.2) Med Orders - Current: Current Medications Acetaminophen (Tylenol) 650 mg PO Q6H ON LICENSE OF [facility] Last Admin: 06/16/18 03:19 Dose: 650 mg Albuterol/Ipratropium (Duoneb 3.0-0.5 Mg/3 Ml) 3 ml INH QIDRT ON LICENSE OF [facility] Last Admin: 06/16/18 07:10 Dose: 3 ml Albuterol/Ipratropium (Duoneb 3.0-0.5 Mg/3 Ml) 3 ml INH ASDIRECTED PRN PRN Reason: BREATHING Allopurinol (Zyloprim) 200 mg PO DAILY ON LICENSE OF [facility] Anastrozole (Arimidex) 1 mg PO DAILY ON LICENSE OF [facility] Bumetanide (Bumex) 2 mg PO BID ON LICENSE OF [facility] Last Admin: 06/15/18 21:15 Dose: 2 mg Celecoxib (Celebrex) 200 mg PO DAILY@0800 ON LICENSE OF [facility] Stop: 06/17/18 08:01 Last Admin: 06/16/18 08:13 Dose: 200 mg Ropivacaine 60 ml/Dexamethasone 8 mg/Epinephrine HCl 0.4 mg/ Sodium Chloride 17.6 ml 0 ml NERVRT ASDIRECTED ON LICENSE OF [facility] Cyanocobalamin (Vitamin B12) 1,000 mcg IM ONETIME ONE Stop: 06/17/18 09:01 Diltiazem HCl (Cardizem) 30 mg PO QID ON LICENSE OF [facility] Last Admin: 06/16/18 06:17 Dose: 30 mg Diphenhydramine HCl (Benadryl) 50 mg IVPUSH Q4H PRN PRN Reason: ITCHING Doxepin HCl (Sinequan) 25 mg PO BEDTIME ON LICENSE OF [facility] Duloxetine HCl (Cymbalta) 60 mg PO DAILY ON LICENSE OF [facility] Gabapentin (Neurontin) 300 mg PO TID ON LICENSE OF [facility] Last Admin: 06/15/18 21:14 Dose: 300 mg Heparin Sodium (Porcine) (Heparin Sodium) 5,000 units SUBCUT Q12H ON LICENSE OF [facility] Last Admin: 06/16/18 06:17 Dose: 5,000 units Hydromorphone HCl (Dilaudid) 0.5 mg IVPUSH Q2H PRN PRN Reason: MODERATE PAIN Hydroxyzine HCl (Vistaril) 50 - 75 mg IM Q4H PRN PRN Reason: pain Last Admin: 06/16/18 02:12 Dose: 50 mg Dextrose/Lactated Ringer's (Dextrose 5%-Lactated Ringers) 1,000 mls @ 80 mls/ hr IV ASDIRECTED ON LICENSE OF [facility] Magnesium Sulfate 2 gm/ Premix 50 mls @ 25 mls/hr IV Q6H ON LICENSE OF [facility] Stop: 06/19/18 04:59 Last Admin: 06/16/18 08:22 Dose: 25 mls/hr Multivitamins/Minerals 10 ml/Thiamine HCl 200 mg/ Chromium/Copper/Manganese/ Seleni/Zn 1 ml/ Dextrose/Lactated Ringer's 1,013 mls @ 80 mls/hr IV DAILY@1600 ON LICENSE OF [facility] Insulin Human Lispro (Humalog) 0 unit SUBCUT Q6H PRN; Protocol PRN Reason: CORRECTIONAL DOSING Last Admin: 06/15/18 16:35 Dose: 5 units Labetalol HCl (Normodyne) 5 mg IVPUSH Q5M PRN PRN Reason: SBP over 160 OR DBP over 95 Metformin HCl (Glucophage) 500 mg PO DAILY ON LICENSE OF [facility] Last Admin: 06/16/18 08:16 Dose: 500 mg Metoclopramide HCl (Reglan) 10 mg IVPUSH Q6H PRN PRN Reason: NAUSEA NOT CONTROL BY ZOFRAN Metolazone (Zaroxolyn) 2.5 mg PO DAILY PRN PRN Reason: EXCESS FLUID Metoprolol Tartrate (Lopressor) 12.5 mg PO BID ON LICENSE OF [facility] Last Admin: 06/16/18 08:14 Dose: 12.5 mg Miscellaneous Information (Remove Patch) 1 ea TRDERM ONETIME ONE Stop: 06/17/18 10:01 Mometasone Furoate/Formoterol Fumar (Dulera 100-5 Mcg) 2 puff IH BIDRT ON LICENSE OF [facility] Last Admin: 06/16/18 07:10 Dose: 2 puff Scopolamine Patch (Check) 1 each TOP DAILY ON LICENSE OF [facility] Stop: 06/17/18 12:13 Last Admin: 06/16/18 08:21 Dose: Not Given Non-Formulary Medication (Denosumab [Xgeva]) 60 mg SQ .Q6MO ON LICENSE OF [facility] Ondansetron HCl (Zofran) 4 mg IVPUSH Q4H PRN PRN Reason: Nausea/Vomiting Ondansetron HCl (Zofran Odt) 4 mg PO Q4H PRN PRN Reason: Nausea/Vomiting Orphenadrine Citrate (Norflex) 100 mg PO BID PRN PRN Reason: Muscle Spasm Pantoprazole Sodium (Protonix Iv) 40 mg IVPUSH Q24H ON LICENSE OF [facility] Last Admin: 06/15/18 14:08 Dose: 40 mg Pramipexole Dihydrochloride (Mirapex) 0.5 mg PO BEDTIME ON LICENSE OF [facility] Scopolamine (Transderm-Scop) 1.5 mg TOP Q72H ON LICENSE OF [facility] Stop: 06/17/18 10:00 Last Admin: 06/15/18 06:07 Dose: 1.5 mg Spironolactone (Aldactone) 50 mg PO BID ON LICENSE OF [facility] Last Admin: 06/16/18 08:14 Dose: 50 mg Discontinued Medications Acetaminophen (Tylenol Extra Strength) 1,000 mg PO ONETIME ONE Stop: 06/15/18 05:31 Last Admin: 06/15/18 06:06 Dose: 1,000 mg Albuterol/Ipratropium (Duoneb 3.0-0.5 Mg/3 Ml) 3 ml NEB ONETIME ONE Stop: 06/15/18 07:01 Last Admin: 06/15/18 06:07 Dose: 3 ml Cefoxitin Sodium (Mefoxin) Confirm Administered Dose 2 gm .ROUTE .STK-MED ONE Stop: 06/15/18 07:04 Last Admin: 06/15/18 09:28 Dose: 2 gm Celecoxib (Celebrex) 200 mg PO ONETIME ONE Stop: 06/15/18 05:31 Last Admin: 06/15/18 06:06 Dose: 200 mg Ephedrine Sulfate (Ephedrine Sulfate) Confirm Administered Dose 50 mg .ROUTE .STK-MED ONE Stop: 06/15/18 10:18 Fentanyl (Sublimaze) Confirm Administered Dose 250 mcg .ROUTE .STK-MED ONE Stop: 06/15/18 07:22 Fentanyl (Sublimaze) Confirm Administered Dose 250 mcg .ROUTE .STK-MED ONE Stop: 06/15/18 08:36 Gabapentin (Neurontin) 300 mg PO ONETIME ONE Stop: 06/15/18 05:31 Last Admin: 06/15/18 06:06 Dose: 300 mg Glycopyrrolate (Robinul) Confirm Administered Dose 1 mg .ROUTE .ST-MED ONE Stop: 06/15/18 07:23 Hydroxyzine HCl (Vistaril) 100 mg IM ONETIME ONE Stop: 06/15/18 10:29 Last Admin: 06/15/18 10:33 Dose: 100 mg Cefoxitin Sodium 2 gm/ Sodium (Chloride) 50 mls @ 100 mls/hr IV ONETIME ONE Stop: 06/15/18 07:44 Last Admin: 06/15/18 07:37 Dose: 100 mls/hr Dextrose/Lactated Ringer's (Dextrose 5%-Lactated Ringers) 1,000 mls @ 100 mls/ hr IV ASDIRECTED [facility] Last Admin: 06/15/18 07:38 Dose: 100 mls/hr Insulin Human Regular 100 unit (/ Sodium Chloride) 100 mls @ 0 mls/hr IV TITRATE U[facility]; Protocol Sodium Chloride (Normal Saline) Confirm Administered Dose 1,000 mls @ as directed .ROUTE .STK-MED ONE Stop: 06/15/18 07:26 Sodium Chloride (Normal Saline) Confirm Administered Dose 10 mls @ as directed .ROUTE .ST-MED ONE Stop: 06/15/18 10:18 Dextrose/Lactated Ringer's (Dextrose 5%-Lactated Ringers) 1,000 mls @ 75 mls/ hr IV ASDIRECTED ON LICENSE OF [facility] Last Admin: 06/16/18 05:31 Dose: 75 mls/hr Lactated Ringer's (Ringers, Lactated) 1,000 mls @ 100 mls/hr IV ASDIRECTED ON LICENSE OF [facility] Last Admin: 06/15/18 21:23 Dose: 100 mls/hr Multivitamins/Minerals 10 ml/Thiamine HCl 200 mg/ Chromium/Copper/Manganese/ Seleni/Zn 1 ml/ Dextrose/Lactated Ringer's 1,013 mls @ 75 mls/hr IV DAILY@1600 ON LICENSE OF [facility] Last Admin: 06/15/18 15:33 Dose: 75 mls/hr Cefoxitin Sodium 2 gm/ Sodium (Chloride) 50 mls @ 100 mls/hr IV Q6H ON LICENSE OF [facility] Stop: 06/16/18 00:59 Last Admin: 06/16/18 00:14 Dose: 100 mls/hr Insulin Human Lispro (Humalog) 5 unit SUBCUT ONETIME ONE Stop: 06/15/18 10:44 Last Admin: 06/15/18 10:50 Dose: 5 units Iohexol (Omnipaque-300) [facility] Stop: 06/16/18 01:24 Last Admin: 06/16/18 01:34 Dose: 50 ml Ketamine HCl (Ketalar) [facility] Metformin HCl (Glucophage) 500 mg PO BIDMEALS ON LICENSE OF [facility] Mometasone Furoate/Formoterol Fumar (Dulera 100-5 Mcg) 2 puff IH ONETIME ONE Stop: 06/15/18 07:31 Last Admin: 06/15/18 07:36 Dose: 1 dose Naloxone HCl (Narcan) Confirm Administered Dose 0.4 mg .ROUTE .STK-MED ONE Stop: 06/15/18 10:02 Last Admin: 06/15/18 15:02 Dose: Not Given Neostigmine Methylsulfate (Neostigmine) Confirm Administered Dose 5 mg .ROUTE .STK-MED ONE Stop: 06/15/18 07:23 Ondansetron HCl (Zofran) Confirm Administered Dose 4 mg .ROUTE .STK-MED ONE Stop: 06/15/18 07:23 Pharmacy Consult (Consult To Pharmacy) 1 each . [facility] Consult (Consult To Pharmacy) 1 each .XX ASDIRECTED ON LICENSE OF [facility] Stop: 06/15/18 14:00 Propofol (Diprivan 20 Ml) Confirm Administered Dose 200 mg .ROUTE .STK-MED ONE Stop: 06/15/18 07:23 Rocuronium [place] (Zemuron) Confirm Administered Dose 50 mg .ROUTE .STK-MED ONE Stop: 06/15/18 07:23 Succinylcholine Chloride (Quelicin) Confirm Administered Dose 200 mg .ROUTE .STK -MED ONE Stop: 06/15/18 07:23 - Exam Quality Assessment: Supplemental Oxygen, DVT Prophylaxis General: Alert, Oriented HEENT: Pupils Equal, Pupils Reactive, EOMI, Mucous Membr. Moist/[place] Neck: Supple Lungs: Clear to Auscultation, Normal Respiratory Effort Cardiovascular: Regular Rate, Regular Rhythm GI/Abdominal Exam: Soft, No Distention, Tender Skin: Warm, Dry, Intact Wound/Incisions: Healing Well, Dressing Dry and Intact - Problem List & Annotations (1) Status post gastric bypass for obesity SNOMED Code(s): 270334991, 431771493, 662153789, 055050932 Code(s): Z98.84 - BARIATRIC SURGERY STATUS Status: Acute Current Visit: Yes Annotation/Comment:: with liver BX and exc, mediastinal lipoma (2) CKD (chronic kidney disease) stage 3, GFR 30-59 ml/min SNOMED Code(s): 104164420 Code(s): N18.3 - CHRONIC KIDNEY DISEASE, STAGE 3 (MODERATE) Status: Chronic Current Visit: No (3) Chronic diastolic heart failure SNOMED Code(s): 304319096 Code(s): I50.32 - CHRONIC DIASTOLIC (CONGESTIVE) HEART FAILURE Status: Chronic Current Visit: No (4) Essential hypertension SNOMED Code(s): 98055544 Code(s): I10 - ESSENTIAL (PRIMARY) HYPERTENSION Status: Chronic Current Visit: No (5) Morbid obesity with BMI of 50.0-59.9, adult SNOMED Code(s): 221368035, 45805631671328 Code(s): E66.01 - MORBID (SEVERE) OBESITY DUE TO EXCESS CALORIES; Z68.43 - BODY MASS INDEX (BMI) 50-59.9, ADULT Status: Chronic Current Visit: No (6) PMR (polymyalgia rheumatica) SNOMED Code(s): 32928863 Code(s): M35.3 - POLYMYALGIA RHEUMATICA Status: Chronic Current Visit: No - Problem List Review Problem List Initiated/Reviewed/Updated: Yes - Plan Plan:: Advance diet to step 2. Replace magnesium 2gm Q6 hours for 48 hours. Change IVF to D5LR @ 80ml/hr.
[2018-06-16] MEDS ORDERED: Metolazone 2.5 MG Tab PO PRN (09:00)
[2018-06-16] MEDS ORDERED: Non-Formulary Medication 1 Each (Duloxetine [Cymbalta] 60 MG) PO SCH (09:00)
[2018-06-16] MEDS ORDERED: Non-Formulary Medication 1 Each (Fluticasone/Vilanterol 1 PUFF) IH SCH (09:00)
[2018-06-16] MEDS: Bumetanide 1 MG Tab PO SCH ×2 (09:09→20:28)
[2018-06-16] MEDS: Pantoprazole 40 MG Delayed-Release Granules 1 Packet PO SCH (12:27)
[2018-06-16] MEDS ORDERED: MVI, Adult with Vitamin K 10 ML, Thiamine 200 MG, Chromium/Copper/Mang/Selen/Zn 1 ML in... IV SCH ×4 (16:00)
[2018-06-16] MEDS ORDERED: Pramipexole 0.5 MG Tab PO SCH (21:00)
[2018-06-16] MEDS ORDERED: Doxepin 25 MG Cap PO SCH (21:00)
[2018-06-17] MEDS: Magnesium Sulfate/Water 2 GM in Premix Bag 1 BAG IV SCH ×2 (04:00→09:30)
[2018-06-17] MEDS: Acetaminophen Soln 650 MG/20.3 ML UD Cup PO SCH ×2 (04:01→09:32)
[2018-06-17] MEDS: Diltiazem IR 30 MG Tab PO SCH ×2 (06:11→09:32)
[2018-06-17] MEDS: Heparin Sodium 5,000 Units/ML Vial SUBCUT SCH (06:11)
[2018-06-17] MEDS: Pantoprazole 40 MG Delayed-Release Granules 1 Packet PO SCH (07:31)
[2018-06-17] MEDS: Celecoxib 200 MG Cap PO SCH (07:31)
[2018-06-17] MEDS: Albuterol/Ipratropium 3.0-0.5 MG/3 ML Neb Soln INH SCH ×2 (07:45→10:40)
[2018-06-17] MEDS: Formoterol/Mometasone 100-5 MCG 8.8 GM Inhaler IH SCH (07:49)
[2018-06-17] MEDS: Spironolactone 25 MG Tab PO SCH (08:02)
[2018-06-17] MEDS: Anastrozole 1 MG Tab PO SCH (08:02)
[2018-06-17] MEDS: metFORMIN 500 MG Tab PO SCH (08:03)
[2018-06-17] MEDS: DULoxetine 30 MG Cap PO SCH (08:03)
[2018-06-17] MEDS: Bumetanide 1 MG Tab PO SCH (08:03)
[2018-06-17] MEDS: Metoprolol Tartrate 25 MG Tab PO SCH (08:03)
[2018-06-17] MEDS: Gabapentin 250 MG/5 ML Solution ML 470 ML Bottle PO SCH (08:04)
[2018-06-17] MEDS: SCOPOLAMINE PATCH CHECK TOP SCH (08:05)
[2018-06-17] MEDS: Allopurinol 100 MG Tab PO SCH (08:05)
[2018-06-17] MEDS ORDERED: Cyanocobalamin (Vitamin B12) 1,000 MCG/ML SDV IM ONE (09:00)
--- NOTE | 2018-06-17 10:18 | DISCH ---
ADMISSION DIAGNOSES: 1. Morbid obesity, BMI 50. 2. Cor pulmonale. 3. Congestive heart failure. 4. Unspecified HF chronicity, unspecified heart failure type. 5. Chronic kidney disease, stage 3. 6. Polymyalgia rheumatica. 7. Glucose intolerance, impaired glucose tolerance. 8. Essential hypertension. 9. Sleep apnea. 10.Chronic obstructive pulmonary disease. 11.Sarcoidosis. 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 13.Degenerative joint disease of knee. 14.Diabetes type 2. 15.Dysthymia. 16.Hypercholesterolemia. 17.Hyperglycemia. 18.Malignant neoplasm of right breast. DISCHARGE DIAGNOSES: Laparoscopic Dale-en-Y gastric bypass surgery, liver biopsy, repair of diaphragmatic hernia, and excision of mediastinal lipoma for morbid obesity, hepatomegaly, diaphragmatic hernia, and mediastinal lipoma. Date of surgery: 06/15/2018. Surgeon: Jarrod Mcgrath MD. HISTORY: Idalia Howard is a 72-year-old female with longstanding history of morbid obesity and increasing comorbidities. After preoperative evaluation and discussion of possible risks and possible complications, she wishes to proceed with surgical procedure. HOSPITAL COURSE: Idalia had her surgery on 06/15/2018. She had no operative complications. On postoperative day #1, her vital signs remained stable. She tolerated a step 1 gastric bypass diet. Her pain was well managed, and she was able to ambulate without difficulty. On postoperative day #1, her upper GI was normal. She was started on the remainder of her home medications. Blood sugars were 230 and 202, decreased to 166, 133, and on day of discharge 135. For her blood sugars over 200, she was given sliding scale coverage. She remained on her normal oxygen at 2 L per nasal cannula. She received dietary instruction and started on a step-2 gastric bypass diet without cereal. On postoperative day #2, vital signs were stable. Her oxygen saturation by pulse oximetry was 97% on 2 L of O2 per nasal cannula. Oral intake 1700, urine output 4850. MIRANDA drain put out 130 mL. She ambulated independently, had dietary instructions, and was able to be discharged to home. LABORATORY DATA: Labs prior to discharge, hemoglobin 12.6, potassium 4.2, BUN 24, creatinine 1.3, estimated GFR 40, glucose 130, BNP 385. PHYSICAL EXAMINATION: GENERAL: Idalia is a pleasant 72-year-old female. VITAL SIGNS: Height is 5 feet 2 inches, weight is 274 pounds 12.8 ounces. BMI is 50. TPR 96.1, 88, 18, blood pressure was 114/96. Prior to that, the diastolic had been running in the low 70s. O2 of 97% on 2 L of O2 by nasal cannula. HEENT: Negative. NECK: Supple. HEART: Regular rate and rhythm, LUNGS: Clear. ABDOMEN: Sutures intact 4 x 4 over MIRANDA drain sites. Abdominal binder has been on. EXTREMITIES: Reveal no additional edema. NEUROLOGIC: Intact. PSYCHIATRIC: Mood and affect appropriate. DISPOSITION: Discharged to home. CONDITION: Stable and improving. FOLLOWUP APPOINTMENT: Ivett Daugherty PA-C, on 06/24/2018 at 11:00 a.m. She is to come at 10:30 a.m. to have a CMP, magnesium, phosphate, and BNP drawn. HOME MEDICATIONS: 1. Tylenol 650 mg q.6 hours p.r.n. pain. 2. Celebrex 200 mg oral daily, #14. 3. Zofran 4 mg every 4 hours p.r.n. nausea. She is to resume her home medication of: 1. ProAir Respiclick 1 to 2 puffs inhalation every 4 hours p.r.n. shortness of breath. 2. Allopurinol/zyloprim 200 mg p.o. oral daily. 3. Arimidex 1 mg oral daily. 4. Bumetanide 2 mg oral twice daily. 5. Cymbalta 60 mg oral daily. 6. Denosumab/Xgeva 60 mg subcu q.6 months. 7. Diltiazem HCL/Cardizem 30 mg oral 4 times a day. 8. Doxepin/Sinequan 25 mg at bedtime. 9. Breo Ellipta/fluticasone and vilanterol 100/25 mcg inhalation kit 1 puff inhalation daily. 10.Gabapentin 300 mg oral at bedtime. 11.Metoprolol tartrate 12.5 mg oral twice daily. 12.Norflex 100 mg oral twice daily p.r.n. muscle spasms. 13.Mirapex 0.5 mg at bedtime. 14.Ranitidine 300 mg oral daily. 15.Spironolactone 50 mg oral daily. 16.Metformin 500 mg oral daily. 17.Zaroxolyn 2.5 mg oral as directed by [facility]. 18.Tizanidine 4 mg oral every 8 hours. 19.Tramadol 50 mg every 6 hours. She is to discontinue taking her vitamin D3, vitamin B12, and magnesium until after first postoperative appointment. DIET: Step 2 gastric bypass diet with no cereal for 2 weeks. Drink 8 to 10 glasses of water a day. ACTIVITY AFTER DISCHARGE: No lifting over 10 pounds for 2 weeks. Walk at least 6 times inside your apartment daily. DRIVING: Do not drive for 1 week. Shower/bathing, may shower. DISCHARGE INSTRUCTIONS: Notify provider if any fever, increased pain, nausea, or vomiting. Keep site clean and dry. Wear abdominal binder for 2 weeks and then as tolerated. SPECIAL INSTRUCTIONS: 1. Use incentive spirometer 10 times every hour while awake for 1 week. 2. Check blood sugars every morning and as needed. Bring results to clinic. 3. Write down protein and fluid intake and bring to clinic appointments.
--- NOTE | 2018-06-19 09:49 | OR ---
DATE OF PROCEDURE: 06/15/2018 PREOPERATIVE DIAGNOSIS: Morbid obesity. PREOPERATIVE DIAGNOSES: 1. Morbid obesity. 2. Marked hepatomegaly. 3. Paraesophageal diaphragmatic hernia. 4. Mediastinal lipoma. OPERATIVE PROCEDURES: 1. Laparoscopic Dale-en-Y gastric bypass with long limb gastroenterostomy (09754). 2. Lionel-Cut needle liver biopsy (71648). 3. Repair of paraesophageal diaphragmatic hernia (84427). 4. Excision of mediastinal lipoma (34528). ANESTHESIA: General. SURGEON: Jarrod Mcgrath MD ASSISTANTS: Ivett Daugherty PA-C, and ROCKY Guadarrama. INDICATION FOR PROCEDURE: This is a 72-year-old presenting with longstanding morbid obesity and increasingly severe comorbidities. After extensive preoperative evaluation and discussion, she wished to proceed with a gastric bypass procedure. She is at significantly higher risk than average, due to her medical comorbidities, and all involved are aware of this. Potential risks of the procedure including bleeding, infection, injury to underlying viscera, problems with bowel obstruction over time, as well as possibility of cardiopulmonary, septic, or hemorrhagic complications leading to were all discussed, and the patient wishes to proceed. DETAILS OF PROCEDURE: The patient was taken to the operating room and after general endotracheal anesthesia was induced, a Denise catheter was inserted and the abdomen prepped and draped, placed in lithotomy position at this time. At 15 cm inferior and 5 cm left of xiphoid process, a transverse incision was made and the peritoneal cavity entered under direct vision with an Optiview trocar, inflated to 15 mmHg pressure with CO2. Laparoscope was reinserted. No underlying trocar insertion site injuries were seen. Following this, bilateral subcostal transversus abdominis plane blocks were placed and 5 additional trocars were placed across the upper and mid abdomen. The patient was noted to have marked hepatomegaly with liver being grossly fatty infiltrated and probably 2 to 3 times normal size. Lionel-Cut needle biopsies were obtained from the left lobe of the liver. Minimal bleeding from the biopsy sites was controlled with electrocautery. The omentum was then divided in the midline up to the level of the transverse colon. This allowed identification of small bowel to ligament of Treitz. Small bowel was then traced out 150 cm distal to that point, where it was divided transversely with a AXEL stapler. Small bowel was then traced out additional 200 cm where the [id number] enteroenterostomy was accomplished with internal firing of the Endo-AXEL 60 mm stapler. Common opening was then closed transversely with the same stapler and angles anastomosed and mesenteric defect approximated with some 0 Ethibond stitch, along with 4 mL of fibrin sealant. The divided end of the Dale limb was then from the mesentery for a few centimeters, which allowed an antecolic position of the Dale limb up to the level of the gastroesophageal junction without tension. The liver was then retracted anteriorly and the patient was noted to have a moderate-sized paraesophageal diaphragmatic hernia with prolapse of a portion of the gastric fundus and perigastric fat in a plane anterior to the course of the esophagus. This was reduced and the peritoneum overlying incised and reflected downward. During the course of dissection, a roughly 4 cm mediastinal lipoma was encountered, and this was excised and sent for histologic evaluation. The diaphragmatic hernia was then repaired anteriorly with a series of 0 Ethibond sutures reinforced with PTFE pledgets. The gastrointestinal balloon catheter was then inflated to 15 mL and pulled up snugly against the EG junction. Gastric wall over the apex of the balloon was then marked with electrocautery, and the balloon catheter deflated and pulled up into the esophagus. The lesser omental tissue adjacent to the gastric cardia was then incised, allowing dissection behind the stomach at that level. Pouch formation was initiated with a transverse firing of the AXEL stapler at the level of the cauterized efrain in the gastric cardia. Pouch was then completed with 2 additional firings of AXEL stapler up to and through the angle of His. Upon completion of the pouch, both staple lines were noted to be intact. The anvil of a 25 mm EEA stapler was then attached to Gates sump type tube. The latter was brought down through the mouth, taken out through a small opening in the gastric pouch, allowing the anvil likewise to be pulled down to within the gastric pouch. The divided end of the Dale limb was then opened and the main body of the EEA stapler was passed several centimeters into the lumen of small bowel, brought up the anvil, and united with it, thus creating the gastrojejunostomy. Upon removal of the stapler, double donuts of mucosa were noted within it. Small bowel was closed off with a vascular staple line. Gastrojejunostomy was reinforced with some 3-0 Vicryl seromuscular stitch, along with fibrin sealant. Leak test was accomplished with injection of 120 mL of air in the gastric pouch while submerged with cefoxitin-containing saline solution. No leaks were identified. Two Robert-Ramirez drains were then placed adjacent to the gastrojejunostomy and taken out through subcostal trocar sites. With no further problems noted, trocars were removed and the peritoneal cavity deflated. The incision was closed with some 4-0 Vicryl skin stitch and drains affixed with some 2-0 silk stitch. The patient was taken to the recovery room in satisfactory condition. There were no evident complications. Physician orthopaedic physician assistant, Ivett Daugherty, played an essential role in assisting in this case, helping to position the patient, retract structures as needed, as well as suturing and cutting sutures when indicated. Her presence improved the patient's safety and decreased operative time. Jarrod Mcgrath MD /[id number]
[2018-07-16] MEDS ORDERED: DENOSUMAB 60 MG SQ SCH (07:30)
== END 2018-06-17 13:15 | disposition home or self-care (01) | DRG 620 ==
LOC: JP.SDSSCHI 05:40 → JP.SDS 05:40 → EDSTATUS 09:00 → JP.MS 10:00
PROVIDERS: ADMIT Surgery; ATTEND Surgery
PROC: 0D164ZA Bypass Stomach to Jejunum, Percutaneous Endoscopic Approach (ICD-10-PCS; principal; 2018-06-15)
PROC: 0FB24ZX Excision of Left Lobe Liver, Percutaneous Endoscopic Approach, Diagnostic (ICD-10-PCS; 2018-06-15)
PROC: 0BQT4ZZ Repair Diaphragm, Percutaneous Endoscopic Approach (ICD-10-PCS; 2018-06-15)
PROC: 0DB63ZZ Excision of Stomach, Percutaneous Approach (ICD-10-PCS; 2018-06-15)
PROC: 0DB83ZZ Excision of Small Intestine, Percutaneous Approach (ICD-10-PCS; 2018-06-15)
PROC: 0WBC4ZX Excision of Mediastinum, Percutaneous Endoscopic Approach, Diagnostic (ICD-10-PCS; 2018-06-15)
DX: E66.01 Morbid (severe) obesity due to excess calories (principal); I13.0 Hypertensive heart and chronic kidney disease with heart failure and stage 1 through stage 4 chronic kidney disease, or unspecified chronic kidney disease; I50.32 Chronic diastolic (congestive) heart failure; Z68.43 Body mass index [BMI] 50.0-59.9, adult; K76.0 Fatty (change of) liver, not elsewhere classified; R16.0 Hepatomegaly, not elsewhere classified; K44.9 Diaphragmatic hernia without obstruction or gangrene; D17.4 Benign lipomatous neoplasm of intrathoracic organs; N18.3 Chronic kidney disease, stage 3 (moderate); Z87.891 Personal history of nicotine dependence; J44.9 Chronic obstructive pulmonary disease, unspecified; I27.81 Cor pulmonale (chronic); D86.9 Sarcoidosis, unspecified; M35.3 Polymyalgia rheumatica; G47.30 Sleep apnea, unspecified; R73.02 Impaired glucose tolerance (oral); Z91.012 Allergy to eggs; Z88.8 Allergy status to other drugs, medicaments and biological substances; Z91.048 Other nonmedicinal substance allergy status
CPT/HCPCS: 36415; 74240; 80048; 80053; 82962; 83735; 83880; 84100; 85025; 86850; 86900; 86901; 88304; 88307; 88313; 94640; 94762; A9270-GY; C9113; J0171; J0330; J0694; J1100; J1644; J1815; J1815-GY; J2310; J2405; J2704; J2710; J2795; J3010; J3410; J3411; J3420; J3475; J3490; J7030; J7042; J7050; J7120; J7620-GY; Q9967

== ENCOUNTER 2019-04-19 09:07 | Day surgery (SDC) | payer MEDICARE, BC ==
[~2019-04-19 09:07] MED LIST changes: -Acetaminophen 500 MG Tab PO ONE; -Celecoxib 200 MG Cap PO ONE; +Dexamethasone 4 MG/ML SDV ONE; -Gabapentin 300 MG Cap PO ONE; +Glycopyrrolate 0.2 MG/ML 5 ML MDV ONE; +Neostigmine Methylsulfate 1 MG/ML 5 ML Syringe ONE; +Ondansetron 4 MG/2 ML SDV ONE; +Propofol 200 MG/20 ML SDV ONE; +Rocuronium 50 MG/5 ML Vial ONE; -Scopolamine 1.5 MG Transdermal Patch TOP SCH; +Succinylcholine 200 MG/10 ML MDV ONE; +fentaNYL 250 MCG/5 ML SDV ONE
[2019-04-19] MEDS ORDERED: Gabapentin 300 MG Cap PO ONE (09:45)
[2019-04-19] MEDS ORDERED: Acetaminophen 500 MG Tab PO ONE (09:45)
[2019-04-19] MEDS ORDERED: Bupivacaine 0.5% 50 ML MDV ONE (10:21)
[2019-04-19] MEDS ORDERED: Meropenem 500 MG SDV ONE (10:21)
[2019-04-19] MEDS ORDERED: Lidocaine 1% with EPINEPHrine 1:100,000 50 ML MDV ONE (10:22)
[2019-04-19] MEDS ORDERED: Dextrose 5%-Lactated Ringers 1,000 ML IV SCH (10:30)
[2019-04-19] MEDS ORDERED: cefOXitin 2 GM in Sodium Chloride 0.9% 50 ML IV ONE (11:00)
[2019-04-19] MEDS ORDERED: Albuterol/Ipratropium 3.0-0.5 MG/3 ML Neb Soln NEB ONE (11:00)
[2019-04-19] MEDS ORDERED: Ketamine 500 MG/5 ML MDV IV SCH (11:30)
[2019-04-19] MEDS ORDERED: Lactated Ringers 1,000 ML ONE (13:02)
[2019-04-19] MEDS ORDERED: hydrOXYzine HCL 100 MG/2 ML SDV IM ONE (13:29)
[2019-04-19] MEDS ORDERED: Ondansetron 4 MG/2 ML SDV IVPUSH PRN (14:24)
[2019-04-19] MEDS ORDERED: HYDROmorphone 1 MG/ML Syringe IV PRN (14:24)
[2019-04-19] MEDS ORDERED: HYDROmorphone 0.5 MG/0.5 ML Syringe IVPUSH PRN (14:24)
[2019-04-19] MEDS ORDERED: Albuterol/Ipratropium 3.0-0.5 MG/3 ML Neb Soln INH PRN (14:26)
[2019-04-19] MEDS: Albuterol/Ipratropium 3.0-0.5 MG/3 ML Neb Soln INH SCH ×2 (15:27→21:49)
[2019-04-19] MEDS ORDERED: Warfarin 5 MG Tab PO ONE (16:00)
[2019-04-19] MEDS ORDERED: Pantoprazole 40 MG Vial IVPUSH SCH (16:00)
[2019-04-19] MEDS: Bumetanide 1 MG Tab PO SCH (16:30)
[2019-04-19] MEDS: Diltiazem IR 30 MG Tab PO SCH ×2 (16:31→21:46)
[2019-04-19] MEDS: traMADol 50 MG Tab PO SCH ×2 (16:37→21:49)
[2019-04-19] MEDS: cefOXitin 2 GM in Sodium Chloride 0.9% 50 ML IV SCH ×2 (17:21→23:43)
[2019-04-19] MEDS ORDERED: Benzocaine/Cetylpyridinium/Menthol Lozenge MUCMEM PRN (19:38)
[2019-04-19] MEDS ORDERED: Gabapentin 300 MG Cap PO SCH (21:00)
[2019-04-19] MEDS ORDERED: Pramipexole 0.5 MG Tab PO SCH (21:00)
[2019-04-19] MEDS ORDERED: Doxepin 25 MG Cap PO SCH (21:00)
[2019-04-19] MEDS ORDERED: Metoprolol Succinate 25 MG Tab.ER PO SCH (21:00)
[2019-04-19] MEDS: Metoprolol Tartrate 25 MG Tab PO SCH (21:46)
[2019-04-19] MEDS: Dextrose 5%-Lactated Ringers 1,000 ML IV SCH (21:49)
[2019-04-19] MEDS: Acetaminophen/HYDROcodone 325-5 MG Tab PO PRN (22:25)
[2019-04-20] MEDS: traMADol 50 MG Tab PO SCH ×2 (03:09→09:50)
[2019-04-20] MEDS: cefOXitin 2 GM in Sodium Chloride 0.9% 50 ML IV SCH (05:46)
[2019-04-20] MEDS: Dextrose 5%-Lactated Ringers 1,000 ML IV SCH (05:51)
[2019-04-20] MEDS: Diltiazem IR 30 MG Tab PO SCH (06:52)
[2019-04-20] MEDS: Albuterol/Ipratropium 3.0-0.5 MG/3 ML Neb Soln INH SCH ×2 (07:22→10:57)
[2019-04-20] MEDS: Bumetanide 1 MG Tab PO SCH (08:09)
[2019-04-20] MEDS: Metoprolol Tartrate 25 MG Tab PO SCH (08:11)
[2019-04-20] MEDS: Acetaminophen/HYDROcodone 325-5 MG Tab PO PRN (08:14)
[2019-04-20] MEDS ORDERED: Enoxaparin 100 MG/1 ML Syringe SUBCUT SCH (09:00)
[2019-04-20] MEDS ORDERED: Spironolactone 25 MG Tab PO SCH (09:00)
[2019-04-20] MEDS ORDERED: Anastrozole 1 MG Tab PO SCH (09:00)
[2019-04-20] MEDS ORDERED: Allopurinol 100 MG Tab PO SCH (09:00)
[2019-04-20] MEDS ORDERED: Warfarin 5 MG Tab PO ONE (10:00)
--- NOTE | 2019-04-20 10:59 | DISCH ---
ADMISSION DIAGNOSES: 1. Chronic cholecystitis and cholelithiasis. 2. Incarcerated incisional hernia. 3. Post malabsorption. 4. SP Dale-en-Y gastric bypass surgery. 5. Vitamin B complex deficiency. 6. Vitamin B12 deficiency. 7. Type 2 diabetes with stage 3 chronic kidney disease without long-term current use of insulin. 8. Essential hypertension. 9. Chronic kidney disease, stage 3. 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 11.Deep vein thrombosis of proximal vein of the right lower extremity. 12.Chronic anticoagulation therapy. 13.Pulmonary hypertension. 14.Cor pulmonale. 15.Obstructive sleep apnea, on CPAP. DISCHARGE DIAGNOSES: 1. Diagnostic laparoscopy with;. a. Cholecystectomy. b. Repair of incarcerated incisional hernia. POSTOPERATIVE DIAGNOSES: 1. Chronic cholecystitis and cholelithiasis. 2. Incarcerated incisional hernia. HISTORY: Idalia Howard is a 73-year-old female with abdominal pain. After preoperative evaluation and discussion of possible risks and possible complications, she wished to proceed with surgical procedure. HOSPITAL COURSE: Idalia had her surgery on 04/19/2019. She had no operative complications. On postoperative day #1, her pain was well managed. Her activity was good. Vital signs were stable. She was able to be discharged to home. Prothrombin time was 10.7, INR was 0.99. Prior to discharge, she received Coumadin 10 mg and Lovenox 100 mg subcu. PHYSICAL EXAMINATION: GENERAL: Idalia Howard is a pleasant 73-year-old female. VITAL SIGNS: Height is 5 feet 2.7 inches, weight is 195 pounds, BMI is 34.9. TPR 97.8, 97, 16, blood pressure is 112/52, O2 by pulse oximetry is 90% on 1 L. HEENT: Negative. NECK: Supple. HEART: Regular rate and rhythm. LUNGS: Clear. ABDOMEN: Dressings dry and intact. Her MIRANDA drain put out 35 mL of a red drainage. No bile is noted. Abdominal binder has been on. EXTREMITIES: With trace peripheral edema. DISPOSITION: Discharged to home. CONDITION: Stable and improving. FOLLOWUP: Appointment with Ivett Daugherty PA-C, on 04/26/2019 at 10 a.m. She is to see [facility] before clinic appointment. HOME MEDICATIONS: 1. Lovenox 100 mg subcu daily starting tomorrow and she has 5 doses at home and to take 1 daily. 2. Start taking regular dose of Coumadin in a.m. on Friday04/21/2019. 3. Tramadol 50 mg oral q.6 hours p.r.n. pain, #30. 4. To resume home medications as she was taking prior to hospital admission: a. Acetaminophen 650 mg q.6 hours p.r.n. pain. b. DuoNeb 3 mL inhalation as needed p.r.n. shortness breath. c. Allopurinol 200 mg oral daily. d. Arimidex 1 mg oral daily. e. Baclofen 10 mg oral 3 times a day p.r.n. muscle spasms. f. Bumetanide 2 mg oral twice daily. g. Denosumab 60 mg subcu every 6 months. h. Diltiazem HCL 30 mg 4 times daily. i. Doxepin 25 mg oral at bedtime. j. Famotidine 40 mg oral daily. k. Neurontin 300 mg oral at bedtime. l. Metoprolol tartrate 12.5 mg oral twice daily. m. Multivitamin 1 daily. n. Mirapex 0.5 mg oral at bedtime. o. Spironolactone 50 mg oral twice daily. p. Vitamin B complex 1 daily. q. Hydroxyzine 25 mg 3 times a day p.r.n. itching. r. Zaroxolyn 2.5 mg oral as directed p.r.n. swelling. s. Tizanidine 4 mg oral every 8 hours p.r.n. muscle spasms. DIET: Usual diet as tolerated. Start out slowly and gradually increase as tolerated. Drink 8 to 10 glasses of water a day. ACTIVITY: No lifting greater than 10 pounds for 2 weeks. Other activity: Walk at least 6 times daily inside your home. Driving: Do not drive while on pain medication. Shower/bathing: May shower. DISCHARGE INSTRUCTIONS: Notify provider if any fever, increased pain, nausea, or vomiting. Keep site clean and dry. Wear abdominal binder for 6 weeks with pressure dressing over hernia site for the 2 weeks. SPECIAL INSTRUCTION: Use incentive spirometer 10 times every hour while awake.
--- NOTE | 2019-04-21 10:26 | OR ---
DATE OF PROCEDURE: 04/19/2019 SURGEON: Jarrod Mcgrath MD PREOPERATIVE DIAGNOSES: 1. Chronic cholecystitis and cholelithiasis. 2. Incarcerated incisional hernia. POSTOPERATIVE DIAGNOSES: 1. Chronic cholecystitis and cholelithiasis. 2. Incarcerated incisional hernia. OPERATIVE PROCEDURE: Diagnostic laparoscopy with: 1. Cholecystectomy (43279). 2. Repair of incarcerated incisional hernia (68209). ANESTHESIA: General. TURNER SPLITTER MACHINE OPERATOR: Ivett Daugherty PA-C. INDICATION FOR PROCEDURE: This is a 73-year-old presenting with ongoing right upper quadrant pain. The patient had an MRCP, was noted to have stones occluding the cystic duct, but the common bile duct was clear. At this point, the patient will undergo a laparoscopic cholecystectomy. She also has an incisional hernia through a periumbilical incision, which is quite large and incarcerated. This will be repaired concurrently. Potential risks of the procedure including bleeding, infection, injury to underlying viscera, problems with stones migrating to the common bile duct requiring additional procedures for correction were all reviewed, and the patient wishes to proceed. DETAILS OF PROCEDURE: The patient was taken to the operating room, and after general endotracheal anesthesia was induced, the abdomen was prepped and draped. Just to the right of the umbilicus area of herniation, a transverse incision was made and peritoneal cavity entered under direct vision with an Optiview trocar, inflated to 15 mmHg pressure with CO2. Laparoscope was then reinserted, and no underlying trocar insertion site injuries were seen. Following this, initially at the epigastric, a 12 mm trocar was placed, along with a 5 mm right abdominal trocar. Bilateral transversus abdominis plane blocks were placed. The gallbladder was noted to be quite distended and enlarged, and the gallbladder retracted anterolaterally. Some omental adhesions were taken down, after which the dissection with Harmonic scalpel continued around the gallbladder neck and cystic duct junction. Once that area was well delineated, along with the adjacent cystic artery, the cystic artery was divided with a AXEL skinner load due to its friable appearance and the region clipped three times proximally, once distally, and divided. The gallbladder was then dissected off the gallbladder bed and delivered through the epigastric trocar site. The patient was noted to have innumerable tiny black stones within the gallbladder. Two 5 mm trocars were then placed in the left upper quadrant, which allowed dissection of the area of the hernia. Hernia was reduced by means of the Harmonic scalpel dissections, along with pressure. The patient had a fascial defect there of about 2 cm. The contents of the hernia were then excised and the peritoneum opened at that point. Some additional stitches placed externally with 0 Vicryl stitch, initially closed off the hernia so we could maintain insufflation. Then using the laparoscopic suture device, a definitive repair was accomplished with series of 0 Vicryl sutures placed with the laparoscopic suture passer, closing the defect in the transverse orientation. At that point, no further problems were noted. Robert-Ramirez was taken out through the right lateral trocar site and placed into the area of the gallbladder bed and the trocars were then sequentially removed. The 12 mm trocar site was closed with 0 Vicryl stitch as well and the fascia level and the skin at each sites with 4-0 Vicryl skin stitch. A dressing was applied. The patient was taken to the recovery room in satisfactory condition. Physician salon assistant, Ivett Daugherty, played an essential role in assisting in this case, helping to position the patient, retract structures as needed, as well as suturing and cutting sutures when indicated. Her presence improved patient safety and decreased the operative time. Jarrod Mcgrath MD /[id number]
== END 2019-04-20 11:11 | disposition home or self-care (01) ==
LOC: JP.SDS 09:07 → JP.MS 13:20 → JP.SDS 04-20 11:11
PROVIDERS: ATTEND Surgery
DX: K80.12 Calculus of gallbladder with acute and chronic cholecystitis without obstruction (principal); K43.0 Incisional hernia with obstruction, without gangrene; K91.2 Postsurgical malabsorption, not elsewhere classified; E53.8 Deficiency of other specified B group vitamins; I12.9 Hypertensive chronic kidney disease with stage 1 through stage 4 chronic kidney disease, or unspecified chronic kidney disease; E11.22 Type 2 diabetes mellitus with diabetic chronic kidney disease; N18.3 Chronic kidney disease, stage 3 (moderate); D86.85 Sarcoid myocarditis; I82.4Y1 Acute embolism and thrombosis of unspecified deep veins of right proximal lower extremity; I27.20 Pulmonary hypertension, unspecified; I27.81 Cor pulmonale (chronic); G47.33 Obstructive sleep apnea (adult) (pediatric); M19.90 Unspecified osteoarthritis, unspecified site; Z98.84 Bariatric surgery status; Z79.4 Long term (current) use of insulin; Z79.01 Long term (current) use of anticoagulants; Z99.89 Dependence on other enabling machines and devices; Z79.899 Other long term (current) drug therapy
CPT/HCPCS: 36415; 47562; 80053; 82728; 83735; 83880; 84100; 85025; 85610; 88302; 88304; 88312; 94640; A9270; C9113; J0171; J0330; J0694; J1100; J1650; J2405; J2704; J2710; J2795; J3010; J3410; J3490; J7050; J7120; J7121; J2020; J2185; J7620-GY

== ENCOUNTER 2019-05-03 11:53 | Inpatient (IN) | payer MEDICARE, BC ==
[2019-05-03] MEDS ORDERED: HYDROmorphone 0.5 MG/0.5 ML Syringe IVPUSH PRN (12:33)
[2019-05-03] MEDS ORDERED: Acetaminophen 650 MG Supp RECTAL PRN (12:35)
[2019-05-03] MEDS ORDERED: Acetaminophen 325 MG Tab PO PRN (12:35)
[2019-05-03] MEDS ORDERED: tiZANidine 4 MG Tab PO PRN (13:10)
[2019-05-03] MEDS ORDERED: Albuterol/Ipratropium 3.0-0.5 MG/3 ML Neb Soln INH PRN (13:10)
[2019-05-03] MEDS ORDERED: Baclofen 10 MG Tab PO PRN (13:10)
[2019-05-03] MEDS: Dextrose 5%-Lactated Ringers 1,000 ML IV SCH (13:15)
[2019-05-03] MEDS ORDERED: Bumetanide 1 MG Tab PO ONE (14:35)
[2019-05-03] MEDS: Pantoprazole 40 MG Vial IV SCH (15:20)
[2019-05-03] MEDS: Diltiazem IR 30 MG Tab PO SCH ×2 (15:20→21:12)
[2019-05-03] MEDS: HYDROmorphone 0.5 MG/0.5 ML Syringe IVPUSH PRN ×3 (16:20→21:56)
[2019-05-03] MEDS ORDERED: Phytonadione 10 MG in Sodium Chloride 0.9% 50 ML IV ONE (16:30)
[2019-05-03] MEDS ORDERED: Bumetanide 1 MG Tab PO SCH (21:00)
[2019-05-03] MEDS ORDERED: BUMETANIDE 2 MG PO SCH (21:00)
[2019-05-03] MEDS: Metoprolol Tartrate 25 MG Tab PO SCH (21:10)
[2019-05-03] MEDS: Doxepin 25 MG Cap PO SCH (21:11)
[2019-05-03] MEDS: Pramipexole 0.5 MG Tab PO SCH (21:11)
[2019-05-03] MEDS: Gabapentin 300 MG Cap PO SCH (21:12)
[2019-05-04] MEDS: HYDROmorphone 0.5 MG/0.5 ML Syringe IVPUSH PRN ×3 (01:46→10:24)
[2019-05-04] MEDS: Diltiazem IR 30 MG Tab PO SCH ×4 (06:00→21:23)
[2019-05-04] MEDS: Dextrose 5%-Lactated Ringers 1,000 ML IV SCH ×2 (08:15→17:16)
[2019-05-04] MEDS ORDERED: Lidocaine 1% with EPINEPHrine 1:100,000 50 ML MDV ONE (08:26)
[2019-05-04] MEDS ORDERED: Bupivacaine 0.5% 50 ML MDV ONE (08:26)
[2019-05-04] MEDS: Bumetanide 1 MG Tab PO SCH ×2 (08:41→14:25)
[2019-05-04] MEDS: Metoprolol Tartrate 25 MG Tab PO SCH ×2 (08:41→21:21)
--- NOTE | 2019-05-04 08:59 | CRLUS ---
INDICATION: Evaluate common bile duct size with stones. COMPARISON: CT abdomen and pelvis April 26, 2019; MRCP and MRI of the abdomen April 27, 2019. TECHNIQUE: Ultrasound examination of the right upper quadrant of the abdomen. FINDINGS: The liver is measuring 14.9 cm in the maximum vertical dimension. No focal hepatic pathology. Common bile duct is measuring 9.7 mm in diameter; no obvious stones identified within the common duct. There were stones in the distal common duct on the previous MRCP as well as CT of the abdomen and pelvis. Status post cholecystectomy. No evidence of intrahepatic biliary duct dilatation. The right kidney is measuring 10.5 x 4.7 x 3.8 cm without any obstructive uropathy or perinephric pathology. The right renal cortex is measuring 1.1 cm in thickness. IMPRESSION: 1. Dilated common bile duct measuring 9.7 mm in diameter; no interval change. 2. Even though no choledochal lithiasis identified on this ultrasound study, stones identified in the distal common duct on the previous CT and MR. Dictated by Yung Jaimes MD @ May 04 2019 8:52AM Signed by Dr. Yung Jaimes @ May 04 2019 8:58AM
[2019-05-04] MEDS ORDERED: Famotidine 20 MG Tab PO SCH (09:00)
[2019-05-04] MEDS ORDERED: Non-Formulary Medication 1 Each (Famotidine [Famotidine] 40 MG) PO SCH (09:00)
[2019-05-04] MEDS ORDERED: Neostigmine Methylsulfate 1 MG/ML 5 ML Syringe ONE (10:40)
[2019-05-04] MEDS ORDERED: Succinylcholine 200 MG/10 ML MDV ONE (10:40)
[2019-05-04] MEDS ORDERED: Rocuronium 50 MG/5 ML Vial ONE ×2 (10:40→15:57)
[2019-05-04] MEDS ORDERED: Glycopyrrolate 0.2 MG/ML 5 ML MDV ONE (10:40)
[2019-05-04] MEDS ORDERED: Propofol 200 MG/20 ML SDV ONE (10:40)
[2019-05-04] MEDS ORDERED: Dexamethasone 4 MG/ML SDV ONE (10:40)
[2019-05-04] MEDS ORDERED: Ondansetron 4 MG/2 ML SDV ONE (10:40)
[2019-05-04] MEDS ORDERED: fentaNYL 250 MCG/5 ML SDV ONE ×2 (10:41→14:40)
[2019-05-04] MEDS ORDERED: cefOXitin 2 GM in Sodium Chloride 0.9% 50 ML IV ONE (13:00)
[2019-05-04] MEDS: Anastrozole 1 MG Tab PO SCH (14:25)
[2019-05-04] MEDS: Allopurinol 100 MG Tab PO SCH (14:25)
[2019-05-04] MEDS ORDERED: Meropenem 500 MG SDV ONE (15:28)
[2019-05-04] MEDS ORDERED: hydrOXYzine HCL 100 MG/2 ML SDV IM ONE (16:28)
[2019-05-04] MEDS ORDERED: fentaNYL 100 MCG/2 ML SDV IVPUSH ONE (16:28)
[2019-05-04] MEDS ORDERED: Ondansetron 4 MG/2 ML SDV IVPUSH PRN ×2 (16:41→16:59)
[2019-05-04] MEDS ORDERED: Naloxone 0.4 MG/ML SDV IVPUSH PRN (16:41)
[2019-05-04] MEDS ORDERED: diphenhydrAMINE 25 MG Cap PO PRN (16:41)
[2019-05-04] MEDS ORDERED: diphenhydrAMINE 50 MG/ML SDV IVPUSH PRN (16:41)
[2019-05-04] MEDS ORDERED: Naloxone 0.4 MG/ML SDV IV PRN (16:45)
[2019-05-04] MEDS ORDERED: Albuterol/Ipratropium 3.0-0.5 MG/3 ML Neb Soln INH PRN (16:59)
[2019-05-04] MEDS: HYDROmorphone/Normal Saline 15 MG/30 ML PCA IV PRN (17:11)
[2019-05-04] MEDS: Pantoprazole 40 MG Vial IV SCH (17:34)
[2019-05-04] MEDS ORDERED: Spironolactone 25 MG Tab PO ONE (18:00)
[2019-05-04] MEDS ORDERED: Bumetanide 1 MG Tab PO ONE (18:00)
[2019-05-04] MEDS: cefOXitin 2 GM in Sodium Chloride 0.9% 50 ML IV SCH (19:19)
[2019-05-04] MEDS: Acetaminophen 325 MG Tab PO SCH (21:20)
[2019-05-04] MEDS: Albuterol/Ipratropium 3.0-0.5 MG/3 ML Neb Soln INH SCH (21:20)
[2019-05-04] MEDS: Gabapentin 300 MG Cap PO SCH (21:22)
[2019-05-04] MEDS: Pramipexole 0.5 MG Tab PO SCH (21:22)
[2019-05-04] MEDS: Doxepin 25 MG Cap PO SCH (21:23)
[2019-05-05] MEDS: cefOXitin 2 GM in Sodium Chloride 0.9% 50 ML IV SCH ×4 (01:56→19:48)
[2019-05-05] MEDS: Acetaminophen 325 MG Tab PO SCH ×4 (01:56→19:50)
[2019-05-05] MEDS: Dextrose 5%-Lactated Ringers 1,000 ML IV SCH (01:56)
[2019-05-05] MEDS: Diltiazem IR 30 MG Tab PO SCH ×4 (05:24→21:18)
[2019-05-05] MEDS: Albuterol/Ipratropium 3.0-0.5 MG/3 ML Neb Soln INH SCH ×4 (07:14→21:18)
[2019-05-05] MEDS ORDERED: Warfarin 5 MG Tab PO ONE (09:00)
[2019-05-05] MEDS: Spironolactone 25 MG Tab PO SCH ×2 (09:29→13:51)
[2019-05-05] MEDS: Bumetanide 1 MG Tab PO SCH ×2 (09:41→13:51)
[2019-05-05] MEDS: Metoprolol Tartrate 25 MG Tab PO SCH ×2 (09:42→21:18)
[2019-05-05] MEDS: Anastrozole 1 MG Tab PO SCH (09:45)
[2019-05-05] MEDS: Allopurinol 100 MG Tab PO SCH (09:49)
[2019-05-05] MEDS: Enoxaparin 60 MG/0.6 ML Syringe SUBCUT SCH ×2 (09:50→21:18)
[2019-05-05] MEDS: Lactated Ringers 1,000 ML IV SCH ×2 (10:53→22:50)
[2019-05-05] MEDS: Magnesium Sulfate/Water 2 GM in Premix Bag 1 BAG IV SCH ×3 (10:56→21:18)
[2019-05-05] MEDS: HYDROmorphone/Normal Saline 15 MG/30 ML PCA IV PRN (11:39)
[2019-05-05] MEDS: Pantoprazole 40 MG Vial IV SCH (15:22)
[2019-05-05] MEDS: Pramipexole 0.5 MG Tab PO SCH (21:18)
[2019-05-05] MEDS: Gabapentin 300 MG Cap PO SCH (21:18)
[2019-05-05] MEDS: Doxepin 25 MG Cap PO SCH (21:18)
[2019-05-06] MEDS: cefOXitin 2 GM in Sodium Chloride 0.9% 50 ML IV SCH ×3 (01:57→14:28)
[2019-05-06] MEDS: Acetaminophen 325 MG Tab PO SCH ×4 (01:57→19:51)
[2019-05-06] MEDS: Magnesium Sulfate/Water 2 GM in Premix Bag 1 BAG IV SCH ×4 (03:30→21:22)
[2019-05-06] MEDS: Diltiazem IR 30 MG Tab PO SCH ×4 (05:40→21:24)
[2019-05-06] MEDS ORDERED: Meropenem 500 MG SDV ONE (06:35)
[2019-05-06] MEDS ORDERED: Bupivacaine 0.5% 50 ML MDV ONE (06:35)
[2019-05-06] MEDS ORDERED: Lidocaine 1% with EPINEPHrine 1:100,000 50 ML MDV ONE (06:35)
[2019-05-06] MEDS: Albuterol/Ipratropium 3.0-0.5 MG/3 ML Neb Soln INH SCH ×4 (07:02→21:17)
[2019-05-06] MEDS ORDERED: fentaNYL 100 MCG/2 ML SDV ONE (07:13)
[2019-05-06] MEDS ORDERED: Midazolam 1 MG/ML 2 ML SDV ONE (07:14)
[2019-05-06] MEDS ORDERED: Propofol 200 MG/20 ML SDV ONE ×2 (07:14→08:00)
[2019-05-06] MEDS: Lactated Ringers 1,000 ML IV SCH ×3 (07:24→21:05)
[2019-05-06] MEDS: Docusate Sodium 100 MG Cap PO SCH ×2 (09:46→21:08)
[2019-05-06] MEDS: Bumetanide 1 MG Tab PO SCH ×2 (09:46→14:30)
[2019-05-06] MEDS: Bisacodyl 5 MG Tab PO SCH ×2 (09:47→21:08)
[2019-05-06] MEDS: Allopurinol 100 MG Tab PO SCH (09:47)
[2019-05-06] MEDS: Anastrozole 1 MG Tab PO SCH (09:48)
[2019-05-06] MEDS: Metoprolol Tartrate 25 MG Tab PO SCH ×2 (09:48→21:17)
[2019-05-06] MEDS: Spironolactone 25 MG Tab PO SCH ×2 (09:49→14:30)
[2019-05-06] MEDS: Enoxaparin 60 MG/0.6 ML Syringe SUBCUT SCH ×2 (09:52→21:09)
[2019-05-06] MEDS: HYDROmorphone 2 MG Tab PO PRN ×2 (11:58→19:41)
[2019-05-06] MEDS ORDERED: Warfarin 5 MG Tab PO ONE (13:00)
--- NOTE | 2019-05-06 13:06 | PN ---
DATE OF SERVICE: 05/05/2019 The patient has been afebrile with stable vital signs. Overnight, urine output has been stable. The creatinine is likewise stable. The respiratory status appears to be fairly good. The bilirubin has dropped to 0.5 and liver function tests overall improving and there is no bile drainage, so it would appear that the choledochoduodenostomy is functioning satisfactorily at this point. We will keep her with just a clear liquid diet for today and plan to proceed with delayed primary closure of abdominal incision tomorrow. Otherwise, maximize activity and work with pulmonary toilet. Jarrod cMgrath MD /[id number]
--- NOTE | 2019-05-06 13:09 | PN ---
DATE OF SERVICE: 05/06/2019 The patient has been afebrile with stable vital signs, looks fairly uncomfortable at this point. She will be undergoing delayed primary closure of abdominal incision later today. I think we will leave the BUS PERSON going for today. Her labs all look good. Bilirubin and liver function tests are beginning to improve. We will give her 10 mg of Coumadin today and continue the Lovenox. Otherwise, maximize activity and work with pulmonary toilet. Jarrod Mcgrath MD /[id number]
[2019-05-06] MEDS: Pantoprazole 40 MG Vial IV SCH (16:25)
[2019-05-06] MEDS: Pramipexole 0.5 MG Tab PO SCH (21:10)
[2019-05-06] MEDS: Gabapentin 300 MG Cap PO SCH (21:12)
[2019-05-06] MEDS: Doxepin 25 MG Cap PO SCH (21:13)
[2019-05-07] MEDS: HYDROmorphone 2 MG Tab PO PRN ×5 (01:02→22:07)
[2019-05-07] MEDS: Acetaminophen 325 MG Tab PO SCH ×4 (01:48→20:35)
[2019-05-07] MEDS: Magnesium Sulfate/Water 2 GM in Premix Bag 1 BAG IV SCH (03:37)
[2019-05-07] MEDS: Lactated Ringers 1,000 ML IV SCH (05:13)
[2019-05-07] MEDS: Diltiazem IR 30 MG Tab PO SCH ×4 (05:23→21:12)
[2019-05-07] MEDS: Albuterol/Ipratropium 3.0-0.5 MG/3 ML Neb Soln INH SCH ×4 (07:16→20:45)
[2019-05-07] MEDS ORDERED: Ondansetron 4 MG Tab.DIS PO PRN (07:57)
[2019-05-07] MEDS ORDERED: Bumetanide 1 MG/4 ML MDV IVPUSH STA (08:10)
[2019-05-07] MEDS: Bumetanide 1 MG Tab PO SCH ×2 (08:45→13:58)
[2019-05-07] MEDS: Spironolactone 25 MG Tab PO SCH ×2 (08:45→13:58)
[2019-05-07] MEDS: Allopurinol 100 MG Tab PO SCH (08:46)
[2019-05-07] MEDS: Docusate Sodium 100 MG Cap PO SCH ×2 (08:47→20:36)
[2019-05-07] MEDS: Enoxaparin 60 MG/0.6 ML Syringe SUBCUT SCH ×2 (08:47→20:37)
[2019-05-07] MEDS: Anastrozole 1 MG Tab PO SCH (08:48)
[2019-05-07] MEDS: Metoprolol Tartrate 25 MG Tab PO SCH ×2 (08:55→21:08)
[2019-05-07] MEDS ORDERED: Warfarin 5 MG Tab PO ONE (11:00)
--- NOTE | 2019-05-07 12:36 | PN ---
DATE OF SERVICE: 05/07/2019 SUBJECTIVE: Idalia reports her pain is controlled. She has been up ambulating. Oral intake has been adequate at 1400 and urine output 1025. She has had one bowel movement, and she states she is passing a lot of flatus. Labs this morning, her PT was 12 and INR was 1.12. REVIEW OF SYSTEMS: Remainder of review of systems negative for any pertinent positives and negatives. OBJECTIVE: GENERAL: Idalia Howard is a pleasant 73-year-old female. She is alert and orientated. Color pale. VITAL SIGNS: TPR is 96.6, 80, 18, and blood pressure 112/68. HEENT: Negative. NECK: Supple. HEART: Regular rate and rhythm. LUNGS: Clear. ABDOMEN: Dressings dry and intact. Abdominal binder is on. EXTREMITIES: Without peripheral edema. ASSESSMENT: 1. Delayed primary closure on 05/06/2019. 2. Exploratory laparotomy with. a. Common bile duct exploration and formation of choledochoduodenostomy. b. Drainage of inflammatory fluid collection adjacent to common bile duct for persistent choledocholithiasis and inflammatory fluid collection adjacent to the common bile duct. Date of surgery, 05/04/2019. PLAN: 1. Coumadin 10 mg one time today. Ask in a.m. 2. Daily PT and INR. 3. Saline lock IV. 4. Bumex 1 mg IV stat. 5. Check CBC, CMP, mag, phos, and BNP in a.m. 6. Step-3 gastric bypass diet. 7. Discontinue Dulcolax tabs. 8. We will evaluate p.r.n. or in a.m. Ivett Daugherty PA-C /[id number]
[2019-05-07] MEDS: Pantoprazole 40 MG Tab.CR PO SCH (16:07)
[2019-05-07] MEDS: Pramipexole 0.5 MG Tab PO SCH (20:37)
[2019-05-07] MEDS: Doxepin 25 MG Cap PO SCH (20:40)
[2019-05-07] MEDS: Gabapentin 300 MG Cap PO SCH (20:40)
[2019-05-07] MEDS: Cyclobenzaprine 10 MG Tab PO PRN (21:08)
[2019-05-08] MEDS: Acetaminophen 325 MG Tab PO SCH ×4 (02:30→19:17)
[2019-05-08] MEDS: HYDROmorphone 2 MG Tab PO PRN ×4 (03:40→19:17)
[2019-05-08] MEDS: Diltiazem IR 30 MG Tab PO SCH ×4 (05:56→22:03)
[2019-05-08] MEDS: Albuterol/Ipratropium 3.0-0.5 MG/3 ML Neb Soln INH SCH ×4 (06:54→21:54)
[2019-05-08] MEDS: Spironolactone 25 MG Tab PO SCH ×2 (08:18→13:02)
[2019-05-08] MEDS: Bumetanide 1 MG Tab PO SCH ×2 (08:19→13:02)
[2019-05-08] MEDS: Enoxaparin 60 MG/0.6 ML Syringe SUBCUT SCH ×2 (08:21→10:06)
[2019-05-08] MEDS: Anastrozole 1 MG Tab PO SCH (08:21)
[2019-05-08] MEDS: Docusate Sodium 100 MG Cap PO SCH ×2 (08:21→21:57)
[2019-05-08] MEDS: Cyclobenzaprine 10 MG Tab PO PRN ×3 (08:22→21:53)
[2019-05-08] MEDS: Allopurinol 100 MG Tab PO SCH (08:22)
[2019-05-08] MEDS ORDERED: Bisacodyl 5 MG Tab PO ONE (11:00)
[2019-05-08] MEDS: Potassium Chloride 20 MEQ Tab.ER PO SCH ×3 (12:50→18:17)
[2019-05-08] MEDS ORDERED: Warfarin 5 MG Tab PO ONE (13:00)
[2019-05-08] MEDS: Metoprolol Tartrate 25 MG Tab PO SCH ×3 (13:09→22:03)
[2019-05-08] MEDS ORDERED: Bisacodyl 5 MG Tab PO PRN (15:00)
[2019-05-08] MEDS: Pantoprazole 40 MG Tab.CR PO SCH (15:36)
[2019-05-08] MEDS: Pramipexole 0.5 MG Tab PO SCH (21:57)
[2019-05-08] MEDS: Gabapentin 300 MG Cap PO SCH (21:57)
[2019-05-08] MEDS: Doxepin 25 MG Cap PO SCH (21:58)
[2019-05-09] MEDS: Acetaminophen 325 MG Tab PO SCH ×2 (01:26→08:28)
[2019-05-09] MEDS: HYDROmorphone 2 MG Tab PO PRN ×2 (05:22→09:57)
[2019-05-09] MEDS: Cyclobenzaprine 10 MG Tab PO PRN (05:22)
[2019-05-09] MEDS: Diltiazem IR 30 MG Tab PO SCH (05:22)
[2019-05-09] MEDS: Albuterol/Ipratropium 3.0-0.5 MG/3 ML Neb Soln INH SCH (07:58)
[2019-05-09] MEDS: Bumetanide 1 MG Tab PO SCH (08:28)
[2019-05-09] MEDS: Anastrozole 1 MG Tab PO SCH (08:28)
[2019-05-09] MEDS: Docusate Sodium 100 MG Cap PO SCH (08:29)
[2019-05-09] MEDS: Spironolactone 25 MG Tab PO SCH (08:30)
[2019-05-09] MEDS: Allopurinol 100 MG Tab PO SCH (08:32)
[2019-05-09] MEDS: Metoprolol Tartrate 25 MG Tab PO SCH (08:34)
--- NOTE | 2019-05-09 14:21 | PN ---
DATE OF SERVICE: 05/08/2019 The patient has been afebrile with stable vital signs. Respiratory status appears to be good. She had diuresed a fair bit yesterday and BNP is down from 2048 to 1334 today, so a little bit above what she normally runs, but she will be getting Bumex today. Otherwise, her pro-time is now therapeutic at 1.92, and we will give her Lovenox this morning and then discontinue the Lovenox after that. She will receive 5 mg of Coumadin today. Potassium is somewhat low, and we will give her 60 mEq of oral potassium today. Recheck some labs in the morning. Drains will be coming out today. Her liver function tests continue to improve, and we will plan on discharge home tomorrow. Jarrod Mcgrath MD /[id number]
--- NOTE | 2019-05-10 07:22 | OR ---
DATE OF PROCEDURE: 05/04/2019 SURGEON: aJrrod Mcgrath MD PREOPERATIVE DIAGNOSIS: Persistent choledocholithiasis. POSTOPERATIVE DIAGNOSES: 1. Persistent choledocholithiasis. 2. Inflammatory fluid collection adjacent to common bile duct. OPERATIVE PROCEDURE: 1. Exploratory laparotomy with: a. Common bile duct exploration (98567). b. Formation of choledochoduodenostomy (01690). c. Drainage of inflammatory fluid collection adjacent to common bile duct (84678). ANESTHESIA: General. CORN POPPER: Ivett Daugherty PA-C. INDICATIONS FOR PROCEDURE: This is a 73-year-old female presenting with persistent choledocholithiasis. She is status post recent cholecystectomy, in which case the gallbladder was noted to have innumerable, easily over 1000, tiny stones. Some of these apparently had gotten into the common bile duct seen on MRCP, and we are awaiting these to pass spontaneously as they were quite small. But, she remains strongly symptomatic with ongoing pain and the plan is to proceed therefore with an exploratory laparotomy and common bile duct exploration and other procedures as indicated. The patient does not like the idea of going to a place something like the [facility] for a laparoscopic access to the bypassed stomach and ERCP. One problem with that nonetheless would be that the patient may likely have multiple small stones in the common bile duct, as well as more proximally within the hepatic ductal system, that may not be all removed by means of ERCP and sphincterotomy leaving the patient with the persistent problem. We will therefore proceed with an open common bile duct exploration. If the bile duct in the supraduodenal area is noted to be more than 0.5 cm or wider in diameter, we would then do a choledochoduodenostomy which would alleviate the issue of subsequent problems with persistent common bile duct stones as they presented draining well into the duodenum. Potential risks of the procedure including bleeding, infection, leaks from various GI tract closures, possible persistence of the problem over time, as well as the possibility of cardiopulmonary, septic, or hemorrhagic complications leading to were discussed, and the patient wishes to proceed. DETAILS OF PROCEDURE: The patient was taken to the operating room, placed in a supine position. After general endotracheal anesthesia was induced, a Denise catheter was inserted, and the abdomen prepped and draped. A right subcostal incision was made and carried down through the full-thickness abdominal wall and into the peritoneal cavity. As one dissected into the area of the gallbladder bed, a thin blood-tinged fluid collection was encountered. Cultures of this were obtained. This resulted in quite a bit of inflammation in the area adjacent to the common bile duct and in the gallbladder bed. After this fluid collection was evacuated, some adhesion formation around the common bile duct was taken down with a combination of blunt and cautery dissection, and at that point, the supraduodenal common bile duct was dissected free. This was noted to be quite satisfactorily sized for a choledochoduodenostomy measuring around 2.2 cm in diameter in the supraduodenal segment. Beginning medially above the duodenum, a longitudinal incision was made in the common bile duct measuring 2 cm. Quite a bit in the way of small spongy type stones were initially evacuated with the biliary Shannen catheter. As one passed down toward the ampulla of Vater, the catheter was able at that point to be passed through into the duodenum. This was then drawn back and approached the ampulla of Vater where it was deflated enough to get it through that area and was then immediately reinflated and pulling that back, a kidney lucio shaped stone was evacuated. This was notably of a different color. It was a brown stone as opposed to the black tiny stones that had been in the gallbladder and elsewhere within the common and hepatic ductal system indicating this is probably a primary common bile duct stone. This was sent as a separate specimen. The remainder of these tiny stones were evacuated and removed by dissection as they came out of the opening of the common bile duct. At this point, the decision was confirmed to proceed with a choledochoduodenostomy. A slightly lesser 2 cm longitudinal incision was then made perpendicular to the common bile duct incision in the duodenum. Initially, a stitch was placed between the middle portion of the duodenum and lower most aspect of the opening of the common bile duct with a 3-0 Vicryl stitch. At this point, the posterior layer sutures were placed beginning in the midportion of the edges of the opening in the common bile duct down to the most lateral aspect of the opening duodenum creating a configuration which would tend to stay open. These posterior row stitches were then completed between those 2 points using a 3-0 Vicryl stitch. The upper aspect of the closure was also then placed, in each case with the posterior, then separately anterior row of sutures. These were all placed and then tied once they were all in position. Once this was completed, there was a very nice opening created between the common bile duct and duodenum. At this point, the area appeared to be showing no signs of bile leak and appeared to be quite secure. The choledochoduodenostomy was then reinforced with some fibrin sealant. Two Robert-Ramirez drains were placed, 1 in the foramen of Harman, behind the common bile duct, and the other anterior to the choledochoduodenostomy. The abdomen was irrigated with meropenem-containing saline solution, and at that point the posterior fascial layer was closed within the incision with a #2 Vicryl stitch and then the anterior layer. The skin and subcutaneous tissue were felt to be at high risk for wound infection and were therefore packed open for a planned delayed primary closure in 48 hours. The patient taken to the recovery room in satisfactory condition after the wound was packed open and the drain sutured with some 3-0 Vicryl skin stitch. Physician corporate administrative assistant, Ivett Daugherty, played an essential role in assisting in this case, helping to position the patient, retract structures as needed as well as suturing and cutting sutures when indicated. Her presence improved patient safety and decreased operative time. Jarrod Mcgrath MD /[id number]
--- NOTE | 2019-05-10 07:34 | DISCH ---
FINAL DIAGNOSES: 1. Choledocholithiasis. 2. History of type 2 diabetes mellitus, now in remission. 3. Bariatric surgery status. 4. History of hypercholesterolemia. 5. History of right breast cancer. 6. History of pulmonary hypertension. 7. Obstructive sleep apnea. OPERATIVE PROCEDURES: 1. On 05/04/2019; exploratory laparotomy with: a. Common bile duct exploration. b. Formation of choledochoduodenostomy. c. Drainage of inflammatory fluid collection adjacent to common bile duct. 2. On 05/06/2019; delayed primary closure of abdominal incision. SUMMARY: This is a 73-year-old recently status post a cholecystectomy, in which she had innumerable small stones present. Initially, she did well, but then presented 2 days postoperatively with some abdominal pain radiating to her back. MRCP was obtained which showed choledocholithiasis. We waited for period of days to see if those might pass spontaneously, but they failed to, and she became more symptomatic. She was therefore admitted. Then, open common bile duct exploration was undertaken. She had some small stones, which were typical for what were in her gallbladder, but also what appeared to be a primary common bile duct stone which was a different color and more of a kidney lucio shaped configuration. This was removed. Common bile duct was quite dilated, so a choledochoduodenostomy was undertaken along with drainage of inflammatory fluid collection adjacent to the gallbladder bed and the common bile duct. The inflammatory fluid collection did grow out some E coli. The patient completed a course of antibiotics while in the hospital. Postoperatively, she has done very well and underwent a delayed primary closure on postop day #2, and will be discharged to home on her usual gastric bypass diet. She will continue her usual medications plus Flexeril 10 mg p.o. q.8 hours p.r.n., #30; and Dilaudid 2 mg q.4 to 6 hours p.r.n. pain. Her pro-time is now therapeutic. She will be following up with Ivett Daugherty at [facility] on 05/14/2019, with a pro-time to be drawn at that time.
--- NOTE | 2019-05-16 16:34 | OR ---
DATE OF PROCEDURE: 05/06/2019 SURGEON: Jarrod Mcgrath MD PREOPERATIVE DIAGNOSIS: Open abdominal incision. POSTOPERATIVE DIAGNOSIS: Open abdominal incision. PROCEDURE: Delayed primary closure of open abdominal incision. ANESTHESIA: Local plus IV sedation. INDICATION FOR PROCEDURE: A 73-year-old female status post drainage of an abscess adjacent to the common bile duct along with open choledochoduodenostomy. Given the patient's obesity, a wound infection was felt to be high likelihood, therefore primary closure was undertaken. Given this, the wound was packed open for a planned delayed primary closure at this time. Potential risks including bleeding and infection were reviewed, and the patient wishes to proceed. DETAILS OF PROCEDURE: The patient was taken to the operating room and placed in a supine position. After IV sedation was administered, the operative dressing was taken down, the wound inspected and found to be clean. Wound was then prepped and draped, anesthetized with 1% lidocaine mixed with Marcaine, and irrigated with meropenem-containing saline solution. Incision was then closed with 2 layers of 3-0 and 4-0 Vicryl stitch deep and desmond for the skin. Dressing was applied. The patient was taken to the recovery room in satisfactory condition. Jarrod Mcgrath MD /[id number]
[2019-08-02] MEDS ORDERED: DENOSUMAB 60 MG SQ SCH (09:00)
== END 2019-05-09 10:52 | disposition home or self-care (01) | DRG 409 ==
LOC: JP.ICU 11:53 → JP.MS 05-06 09:37
PROVIDERS: ADMIT Surgery; ATTEND Surgery
PROC: 0F190Z3 Bypass Common Bile Duct to Duodenum, Open Approach (ICD-10-PCS; principal; 2019-05-04)
PROC: 0F990ZZ Drainage of Common Bile Duct, Open Approach (ICD-10-PCS; 2019-05-04)
DX: K80.50 Calculus of bile duct without cholangitis or cholecystitis without obstruction (principal); K91.2 Postsurgical malabsorption, not elsewhere classified; I13.0 Hypertensive heart and chronic kidney disease with heart failure and stage 1 through stage 4 chronic kidney disease, or unspecified chronic kidney disease; I50.32 Chronic diastolic (congestive) heart failure; E78.00 Pure hypercholesterolemia, unspecified; I27.20 Pulmonary hypertension, unspecified; G47.33 Obstructive sleep apnea (adult) (pediatric); K22.70 Barrett's esophagus without dysplasia; M17.9 Osteoarthritis of knee, unspecified; E66.01 Morbid (severe) obesity due to excess calories; E11.40 Type 2 diabetes mellitus with diabetic neuropathy, unspecified; G25.81 Restless legs syndrome; M81.0 Age-related osteoporosis without current pathological fracture; D86.9 Sarcoidosis, unspecified; Z96.651 Presence of right artificial knee joint; E11.22 Type 2 diabetes mellitus with diabetic chronic kidney disease; N18.3 Chronic kidney disease, stage 3 (moderate); E53.8 Deficiency of other specified B group vitamins; E53.9 Vitamin B deficiency, unspecified; I27.81 Cor pulmonale (chronic); J44.9 Chronic obstructive pulmonary disease, unspecified; Z90.49 Acquired absence of other specified parts of digestive tract; Z90.89 Acquired absence of other organs; Z98.84 Bariatric surgery status; Z85.3 Personal history of malignant neoplasm of breast; Z79.899 Other long term (current) drug therapy; Z68.39 Body mass index [BMI] 39.0-39.9, adult
CPT/HCPCS: 36415; 76705; 80048; 80053; 82150; 83690; 83735; 83880; 84100; 85027; 85610; 87070; 87075; 87077; 87186; 87205; 88300; 94640; 94762; A9270-GY; C9113; J0171; J0330; J0694; J1100; J1170; J1650; J2185; J2250; J2405; J2704; J2710; J2795; J3010; J3410; J3430; J3475; J3490; J7050; J7120; J7121; J7620-GY

== ENCOUNTER 2021-01-22 11:59 | Emergency (ER) | payer MEDICARE, BC ==
--- NOTE | 2021-01-22 14:11 | EDM.PDOC ---
ED HPI GENERAL MEDICAL PROBLEM - General Chief Complaint: Abdominal Pain Stated Complaint: PAIN IN UPPER LEFT SIDE Time Seen by Provider: 01/22/21 14:00 Source of Information: Reports: Patient, Provider, RN Notes Reviewed History Limitations: Reports: No Limitations - History of Present Illness INITIAL COMMENTS - FREE TEXT/NARRATIVE: 75-year-old female presents emergency department day concern about pulmonary embolism, she was recently evaluated in the walk-in clinic I did receive a call from the walk-in clinic provider blood work was done unremarkable creatinine today is 0.99 however D-dimer was elevated over 1999 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 Recently had surgery for abdominal hernia repair she is a gastric bypass patient. Following the surgery she is now developed some back pain feels short of breath but she states she always feels short of breath Left Back Pain Score (Numeric/FACES): 10 - Related Data Allergies Allergy/AdvReac Type Severity Reaction Status Date / Time simvastatin Allergy Hives Verified 01/22/21 13:28 atorvastatin [From Lipitor] AdvReac Muscle Verified 01/22/21 13:28 Aches prednisone AdvReac Swelling Verified 01/22/21 13:28 metal Allergy Blisters Uncoded 01/22/21 13:28 eggs AdvReac Diarrhea Uncoded 01/22/21 13:28 Home Meds: Home Meds Anastrozole [Arimidex] 1 mg PO DAILY 09/10/17 [History] Doxepin [SINEquan] 25 mg PO BEDTIME 09/10/17 [History] Gabapentin [Neurontin] 600 mg PO BEDTIME 09/10/17 [History] Pramipexole [Mirapex] 0.5 mg PO BEDTIME 09/10/17 [History] Spironolactone 50 mg PO BID 09/10/17 [History] allopurinoL [Zyloprim] 200 mg PO DAILY 09/10/17 [History] Bumetanide 1 mg PO BID 04/04/18 [History] tiZANidine [Zanaflex] 4 mg PO Q8H PRN 06/11/18 [History] Metoprolol Tartrate 12.5 mg PO BID 06/15/18 [History] Famotidine 40 mg PO BEDTIME 04/19/19 [History] Acetaminophen [Tylenol] 650 mg PO Q4H PRN 11/17/19 [History] Albuterol/Ipratropium [DuoNeb 3.0-0.5 MG/3 ML] 3 ml INH Q4H PRN 11/17/19 [History] Calcium Carbonate [Calcium] 600 mg PO DAILY 11/17/19 [History] Cholecalciferol (Vitamin D3) [Vitamin D3] 1,000 unit PO DAILY 11/17/19 [History] Cyanocobalamin (Vitamin B-12) [Vitamin B-12] 500 mcg PO DAILY 11/17/19 [History] Denosumab [Prolia] 60 mg SUBCUT .[id number] 11/17/19 [History] Ferrous Sulfate 325 mg PO DAILY 11/17/19 [History] Fluticasone/Vilanterol [Breo Ellipta 100-25 MCG Inhalation Kit] 1 puff INH DAILY 11/17/19 [History] Gabapentin [Neurontin] 300 mg PO BID 11/17/19 [History] Nystatin/Triamcin [Nystatin-Triamcinolone Cream] 1 applic TOP BID PRN 11/17/19 [History] Pediatric Multivit Comb No.121 [Kidstart] 1 each PO DAILY 11/17/19 [History] Vitamin B Complex [B Complex] 1 each PO DAILY 11/17/19 [History] metOLazone [Metolazone] 2.5 mg PO DAILY 11/17/19 [History] Hydrocodone/Acetaminophen [Hydrocodon-Acetaminophen 5-325] 1 each PO Q8HR PRN 05/24/20 [History] Past Medical History HEENT History: Reports: Impaired Vision Cardiovascular History: Reports: Blood Clots/VTE/DVT, Heart Failure, High Cholesterol, Hypertension, Pulmonary Hypertension Respiratory History: Reports: COPD, Sleep Apnea, Other (See Below) Other Respiratory History: 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 c-pap. 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 bilateral hip pain needs replacement. DJD knee,s Neurological History: Reports: Neuropathy, Peripheral, Other (See Below) Other Neuro History: Restless leg Psychiatric History: Reports: Depression Endocrine/Metabolic History: Reports: Diabetes, Type II, Obesity/BMI 30+ Hematologic History: Reports: B12 Deficiency, Other (See Below) Other Hematologic History: monocalonalgromompathy of an undetermined significance Oncologic (Cancer) History: Reports: Breast - Infectious Disease History Infectious Disease History: Reports: None - Past Surgical History HEENT Surgical History: Reports: Cataract Surgery, Tonsillectomy Cardiovascular Surgical History: Reports: None Respiratory Surgical History: Reports: None GI Surgical History: Reports: Appendectomy, Bariatric Procedure, Colonoscopy, EGD Female Surgical History: Reports: Breast Biopsy, Breast Reconstruction Other Female Surgeries/Procedures: lumpectomy Endocrine Surgical History: Reports: None Neurological Surgical History: Reports: Spinal Fusion, Vertebroplasty Musculoskeletal Surgical History: Reports: None, Knee Replacement Oncologic Surgical History: Reports: Biopsy of Breast, Lumpectomy Dermatological Surgical History: Reports: None Social & Family History - Family History Family Medical History: No Pertinent Family History - Tobacco Use Tobacco Use Status *Q: Never Tobacco User - Caffeine Use Caffeine Use: Reports: Coffee - Recreational Drug Use Recreational Drug Use: No ED ROS GENERAL - Review of Systems Review Of Systems: See Below Constitutional: Denies: Fever, Chills HEENT: Reports: No Symptoms Respiratory: Reports: Shortness of Breath Cardiovascular: Reports: Dyspnea on Exertion GI/Abdominal: Reports: No Symptoms Musculoskeletal: Reports: Back Pain ED EXAM, GENERAL - Physical Exam Exam: See Below Exam Limited By: No Limitations General Appearance: Alert, WD/WN, No Apparent Distress Respiratory/Chest: No Respiratory Distress, Lungs Clear, Normal Breath Sounds, No Accessory Muscle Use, Chest Non-Tender Cardiovascular: Regular Rate, Rhythm, No Murmur GI/Abdominal: Soft, Other (Surgical wound clean dry and intact) Course - Vital Signs Last Recorded V/S: Last Vital Signs Temp 95.9 F L 01/22/21 13:27 Pulse 80 01/22/21 13:27 Resp 20 01/22/21 13:27 BP 121/78 01/22/21 13:27 Pulse Ox 93 L 01/22/21 13:27 - Orders/Labs/Meds Meds: Medications Discontinued Medications Generic Name Dose Route Start Last Admin Trade Name Freq PRN Reason Stop Dose Admin Sodium Chloride 100 mls @ 4 mls/sec 10/18/21 14:15 01/22/21 14:41 Normal Saline IV 01/22/21 14:16 4 mls/sec ASDIRECTED UMM Administration Iopamidol 100 ml 01/22/21 14:15 01/22/21 14:40 Iopamidol 755 Mg/Ml 100 Ml Bottle IV 01/22/21 14:16 100 ml . DIRECTED UMM Administration Sodium Chloride 10 ml 01/22/21 14:12 01/22/21 14:40 Sodium Chloride 0.9% 10 Ml Syringe FLUSH 01/22/21 14:13 10 ml ONETIME ONE Administration Departure - Departure Time of Disposition: 15:31 Disposition: Home, Self-Care 01 Condition: Fair Clinical Impression: Back pain Qualifiers: Back pain location: back pain in other location Chronicity: acute Qualified Code(s): M54.9 - Dorsalgia, unspecified - Discharge Information Instructions: Pain Medicine Instructions, [id number] Referrals: Dre Coburn MD [Primary Care Provider] - Forms: ED Department Discharge Additional Instructions: Continue with your regular medications, please followup with your primary care provider in 3-5 days if not better, please call return to the emergency department with worsening of symptoms. Sepsis Event Note (ED) - Focused Exam Vital Signs: Vital Signs Temp Pulse Resp BP Pulse Ox 01/22/21 13:27 95.9 F L 80 20 121/78 93 L 01/22/21 13:25 95.9 F L 80 20 121/78 93 L - Assessment/Plan Plan: Assessment Acuity = acute Site and laterality = pain left CVA area Etiology = unknown Manifestations = none Location of injury = Home Lab values = CT scan of the chest negative for any pulmonary embolism Plan I did review lab work with her I talked to her about the possibility urinary tract infection or another etiology and further evaluation of which she declined any further evaluation. She will follow-up with her primary care in the next 3 to 5 days if not better This note was dictated using [employer] voice recognition software please call with any questions on syntax or grammar.
[2021-01-22] MEDS ORDERED: Iopamidol 755 Mg/ML 100 ML Bottle IV SCH (14:15)
[2021-01-22] MEDS ORDERED: Sodium Chloride 0.9% 100 ML IV SCH (14:15)
[2021-01-22] MEDS: Sodium Chloride 0.9% 10 ML Syringe FLUSH ONE ×2 (14:34→14:40)
--- NOTE | 2021-01-22 15:17 | CT ---
Ang Chest CLINICAL HISTORY: SOB, history of PE TECHNIQUE: Thin section axial contiguous tomographic sections were taken through the chest after bolus IV iodinated contrast administration. Coronal and sagittal images were reconstructed. Auto dosage reduction and iterative reconstruction techniques employed. FINDINGS: Patient has diffuse emphysematous changes. There is some bronchiectasis and some bronchial thickening. There are scattered central lobar and subpleural bullae. There are no effusions. No pulmonary masses seen. No filling defects identified in the pulmonary arteries. There are atherosclerotic changes in the aorta. There is a calcified mitral annulus. Patient has had previous gastric surgery and cholecystectomy. There is pneumobilia IMPRESSION: No evidence of pulmonary emboli Advanced changes of COPD Previous gastric surgery and cholecystectomy
== END 2021-01-22 15:40 | disposition home or self-care (01) ==
LOC: JP.ED 11:59
DX: M54.9 Dorsalgia, unspecified (principal); E78.00 Pure hypercholesterolemia, unspecified; I10 Essential (primary) hypertension; E11.42 Type 2 diabetes mellitus with diabetic polyneuropathy; Z91.012 Allergy to eggs; Z88.8 Allergy status to other drugs, medicaments and biological substances; Z79.899 Other long term (current) drug therapy
CPT/HCPCS: 71275; 99285; Q9967

== ENCOUNTER 2023-01-04 08:36 | Emergency (ER) | payer MEDICARE, BC ==
[2023-01-04] MEDS ORDERED: Morphine 4 MG/ML Syringe IVPUSH PRN (08:48)
[2023-01-04] MEDS ORDERED: Nitroglycerin 0.4 MG Tab.SL SL PRN (08:48)
[2023-01-04] MEDS ORDERED: Sodium Chloride 0.9% 10 ML Syringe FLUSH PRN (08:48)
[2023-01-04 09:05] LABS: BASOPHILS ABSOLUTE AUTO 0.03 K/uL (0.00-0.10); BASOPHILS PERCENT AUTO 0.4 % (0.1-1.3); EOSINOPHILS ABSOLUTE AUTO 0.13 K/uL (0.00-0.40); EOSINOPHILS PERCENT AUTO 1.8 % (0.0-5.4); HEMATOCRIT 41.9 % (34.3-46.0); HEMOGLOBIN 13.6 g/dL (11.2-15.5); IMMATURE GRAN PERCENT AUTO 0.3 % (0.0-0.7); LYMPHOCYTES ABSOLUTE AUTO 0.95 K/uL (0.8-3.3); LYMPHOCYTES PERCENT AUTO 13.3 % (11.4-47.7); MEAN CORPUSCULAR HEMOGLOBIN 28.9 pg (31.6-35.5); MEAN CORPUSCULAR HGB CONC 32.5 g/dL (31.6-35.5); MONOCYTES ABSOLUTE AUTO 0.45 K/uL (0.20-0.90); MONOCYTES PERCENT AUTO 6.3 % (3.3-12.6); NEUTROPHILS ABSOLUTE AUTO 5.55 K/uL (1.0-7.6); NEUTROPHILS PERCENT AUTO 77.9 % (40.0-78.1); PLATELET COUNT,PLT 233 K/uL (130-375); RED BLOOD CELL COUNT 4.71 M/uL (3.77-5.24); WHITE BLOOD CELL COUNT,WBC 7.1 K/uL (3.2-11.0)
[2023-01-04 09:13] LABS: IMMATURE GRAN ABSOLUTE AUTO 0.02 K/uL (0.00-0.23)
[2023-01-04 09:27] LABS: CALCIUM 9.3 mg/dL (8.5-10.1); CREATININE 0.9 mg/dL (0.6-1.0); EST CRCL DRUG DOSING (CG) 42.72 mL/min; POTASSIUM,K 3.7 mmol/L (3.6-5.2); TROPONIN I HIGH SENSITIVITY 5.3 pg/mL (<=60.3)
[2023-01-04 09:29] LABS: ANION GAP 9.7 mmol/L (5.0-14.0)
[2023-01-04] MEDS ORDERED: Ketorolac 30 MG/ML SDV IVPUSH ONE (11:40)
== END 2023-01-04 13:03 | disposition home or self-care (01) ==
LOC: JP.ED 08:36
DX: R07.89 Other chest pain (principal); I13.0 Hypertensive heart and chronic kidney disease with heart failure and stage 1 through stage 4 chronic kidney disease, or unspecified chronic kidney disease; E11.22 Type 2 diabetes mellitus with diabetic chronic kidney disease; N18.9 Chronic kidney disease, unspecified; I50.9 Heart failure, unspecified; J44.9 Chronic obstructive pulmonary disease, unspecified; K21.9 Gastro-esophageal reflux disease without esophagitis; E11.42 Type 2 diabetes mellitus with diabetic polyneuropathy; E66.9 Obesity, unspecified; Z68.36 Body mass index [BMI] 36.0-36.9, adult; Z88.8 Allergy status to other drugs, medicaments and biological substances; Z91.048 Other nonmedicinal substance allergy status; Z91.013 Allergy to seafood; Z79.899 Other long term (current) drug therapy
CPT/HCPCS: 36415; 71045; 80048; 84484; 85025; 93005; 96374; 96375; 99285; J1885; J2270; J3490; 93010; 99283

== ENCOUNTER 2024-01-05 14:54 | Emergency (ER) | payer MEDICARE, BC | END 2024-01-05 18:10 | disposition home or self-care (01) | LOC: JP.ED 14:54 | DX: H34.11 Central retinal artery occlusion, right eye (principal); I13.0 Hypertensive heart and chronic kidney disease with heart failure and stage 1 through stage 4 chronic kidney disease, or unspecified chronic kidney disease; I50.9 Heart failure, unspecified; N18.9 Chronic kidney disease, unspecified; E78.00 Pure hypercholesterolemia, unspecified; J44.9 Chronic obstructive pulmonary disease, unspecified; K21.9 Gastro-esophageal reflux disease without esophagitis; E66.9 Obesity, unspecified; Z90.49 Acquired absence of other specified parts of digestive tract; Z79.899 Other long term (current) drug therapy; Z88.8 Allergy status to other drugs, medicaments and biological substances; Z91.048 Other nonmedicinal substance allergy status; Z91.012 Allergy to eggs; Z68.35 Body mass index [BMI] 35.0-35.9, adult | CPT/HCPCS: 36415; 85651; 86140; 93005; 93010; 99283; 99284 ==